=== PATIENT | male | born 1965 | race Caucasian/White ===

== ENCOUNTER → 2017-12-07 | Outpatient (CLI) | payer BC, OTHER ==
[~2017-12-07] VITALS: Ht 175.3 cm; Wt 88.0 kg
[~2017-12-07] MED LIST: ALLERGY10 M1 PO; FLEXERIL PO; HYDROCHLOROTH12.5 M1 PO; HYDROCODONE-AP1 EAC6 PO; MOBIC15 MG PO; NORVASC5 MG PO
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
[2017-12-07 08:19] VITALS: BP 155/100
== END ==
LOC: PAIN 07:03
DX: G89.29 Other chronic pain (principal); M54.5 Low back pain; M25.512 Pain in left shoulder; I10 Essential (primary) hypertension; M19.90 Unspecified osteoarthritis, unspecified site; Z98.890 Other specified postprocedural states

== ENCOUNTER → 2018-02-15 | Outpatient (CLI) | payer BC, OTHER ==
[~2018-02-15] VITALS: Ht 175.3 cm; Wt 86.6 kg
[~2018-02-15] MED LIST changes: +LIDODERM1 EACH TOP
--- NOTE | ~2018-02-15 | HPC ---
[facility] [address] [place] [address] PAIN MANAGEMENT CONSULTATION Name: MEGHANA MORSE JR Room #: REG JAMIE HayesSheliaIvory.#: [id number] Admission: 02/15/18 Attend Phys: Carmelo Dawson MD Discharge: Date of : 67 Report #: [id number] THIS REPORT FOR: //name// CC: Magui Dawson DATE OF SERVICE: 02/15/2018 FOLLOWUP COMPLAINT: Here for medication renewal. FOLLOWUP HISTORY: The patient is a 52-year-old gentleman who has been followed in the pain clinic because of chronic pain involving his low back. He does have some scoliosis. 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 Finds his medications enable him to stay gainfully employed. Does note some increased muscle spasms. Has had some problems with cramps. States that he was working on top of ____ roof. Became somewhat hot and overworked. He was taken to a cooling station. He has been working to increase his potassium level. He feels that was partially what the problem was and with some dehydration. The temperatures around have been about 95 for a number of days. Feels that the Flexeril medication continues to be helpful. He takes this medication at bedtime. He feels it makes him somewhat sleepy. He is sleeping reasonably well with his current medical regimen. He would like to have his medications renewed. He has had no problems with them. There are no problems with mentation. He rates his pain as a 10/10 today. Given the amount of work that he has been doing. Has been sleeping in a recliner. Also, finds that hot baths are helpful. ALLERGIES: No known drug allergies. MEDICATIONS: Lidoderm patch topically daily, hydrocodone 5/325 one p.o. t.i.d., cyclobenzaprine/Flexeril 10 mg at bedtime for spasms, Meloxicam 15 mg daily, hydrochlorothiazide 12.5 mg, Norvasc 5 mg daily as Mervat 10 mg daily. Other medications Viagra. PAIN CLINIC ASSESSMENT: 1. The patient has some arthritic changes back. Has scoliosis. Has had a compression fracture in the L2 area. 2. Height 5 feet 9 inches, weight 191 pounds, BMI is 28.2. 3. Vital signs: Blood pressure 116/106, pulse 80, respiratory rate 14, room air saturation 100. 4. Pain intensity 10/10. 5. Fall risk. The patient has not fallen in the last 3 months. 6. Blood thinner. The patient is not on a blood thinning medication. 7. Hypertension. The patient is being treated for hypertension. 8. Opioid therapy greater than 6 weeks. The patient is receiving medications from the pain clinic and uses opioid medications from [facility]. [address] [address] PAIN MANAGEMENT CONSULTATION Name: MINIMEGHANA LIBIA Room #: REG [facility]#: [id number] Admission: 02/15/18 Attend Phys: Carmelo Dawson MD Discharge: Date of : 67 Report #: [id number] 9. Risk assessment tool, low for opioids. 10. Functional assessment tool 51/70 showing significant problems with activities of daily living because of the pain. 11. Recreational drug use. The patient denies use of recreational drugs. 12. Tobacco: The patient never smoked tobacco. 13. Alcohol: The patient denies frequent use of alcoholic beverages. PHYSICAL EXAMINATION: GENERAL: The patient is a well-developed, well-nourished white male. Appears stated age. He is alert and oriented x 3. Her speech is fluent. HEAD, EYES, EARS, NOSE, AND THROAT: Normocephalic, atraumatic. Extraocular eye muscles intact. Sclerae nonicteric. Hearing is within normal limits. Mucous membranes are moist. NECK: Without adenopathy. Good range of motion. HEART: Regular rate and rhythm, S1, S2. LUNGS: Clear to auscultation without rales or rhonchi. ABDOMEN: Nontender. MUSCULOSKELETAL: The patient has noted some increased muscle spasm in his lower back. States his upper torso sometimes feels like it is twisting when he is in bed. Has a history of scoliosis. Feels that sometimes he is experiencing some cramping in his upper back as a result of this. He has discomfort in his left hip as well as in the upper back and the pectoralis area. Muscle strength in the left upper extremity is judged to be 5/5 for the major muscle groups without sensory change in muscles symmetry. Lower back 5/5 for the major muscle groups without sensory changes or weakness. IMPRESSION: 1. Chronic low back pain as well as left shoulder pain and discomfort. 2. History of scoliosis -- note some increase in spasticity. RECOMMENDATIONS: We discussed treatment options with the patient. We will continue with his current medications. He will continue with the Flexeril. He feels that the Flexeril medication is helpful. He has not taken at work. Feels that the medication sometimes make him feel somewhat sleepy. Feels that he is getting a good night's rest with his current medical regimen in conjunction with Flexeril. No real problems with his medication. He is taking them as prescribed. Keeps his medications in a guarded area. He feels that the medications along with meloxicam enable him to continue to be gainfully employed. We have rewritten his script for hydrocodone 5/325 one p.o. b.i.d., Flexeril 10 mg at bedtime and meloxicam 15 mg daily. He will monitor his blood. He will monitor his stomach for signs of GI irritation as a result of use of Mobic. [facility] [address] [place] [address] PAIN MANAGEMENT CONSULTATION Name: MEGHANA MORSE Room #: REG [facility].#: [id number] Admission: 02/15/18 Attend Phys: Carmelo Dawson MD Discharge: Date of : 67 Report #: [id number] We would like to thank you for letting us to participate in his care. We hope he continues to improve. By: [id number] Carmelo Dawson MD /JOHNNY
[2018-02-15 08:02] VITALS: BP 160/106
== END ==
LOC: PAIN 06:52
DX: G89.29 Other chronic pain (principal); M54.5 Low back pain; M25.512 Pain in left shoulder

== ENCOUNTER → 2018-03-15 | Outpatient (CLI) | payer BC, OTHER ==
[~2018-03-15] VITALS: Ht 175.3 cm; Wt 85.3 kg
--- NOTE | ~2018-03-15 | HPC ---
[facility] [address] [place] [address] PAIN MANAGEMENT CONSULTATION Name: MEGHANA MORSE JR Room #: REG JAMIE Blade.#: [id number] Admission: 03/15/18 Attend Phys: Carmelo Dawson MD Discharge: Date of : 67 Report #: [id number] THIS REPORT FOR: //name// CC: Magui Dawson DATE OF SERVICE: 03/15/2018 CHIEF COMPLAINT: Here for medication renewal. "Things are going pretty well. I have had some reflux-like symptoms when I was eating." FOLLOWUP HISTORY: The patient is a 52-year-old gentleman who has been followed in the pain clinic because of chronic pain involving his low back. He has some history of scoliosis. He continues to work in a difficult situation. He works in the heat of this summer. Continues to work with concrete. Finds that his medications are helpful. He has been taking the medication as prescribed. The patient states that things have been going reasonably well. He did have some episode of symptoms consistent with reflux. States that he does take antacid medications on a regular basis. If he forgets to take the medications that can be quite problematic. Notes some burning in his throat when he does not take this medication. States that last night he was eating, noted some discomfort. Did not have any pain radiating down to his arms, but did have some discomfort and "regurgitated/spit up" some of his food. Things improved somewhat after that. He has a family history of heart disease. He states that he has been living reasonably well and eating reasonably healthy. He does not smoke cigarettes. He has not had any problems with his heart per his recall. ALLERGIES: No known drug allergies. CURRENT MEDICATIONS: Lidoderm patch applied topically, hydrocodone 5/325 one p.o. t.i.d., Flexeril 10 mg at bedtime for spasms, meloxicam 15 mg, hydrochlorothiazide 12.5 mg, Norvasc 5 mg daily, Mervat 10 mg, and occasional use of Viagra. PAIN CLINIC ASSESSMENT: 1. The patient has some arthritic changes in his back, has scoliosis, has had compression fractures in the L2 area. 2. Height 5 feet 9 inches, weight 188 pounds, BMI is 27. Vital signs, blood pressure 150/98, pulse 76, respiratory rate 14, room air saturation is 100%. 3. Pain intensity 7/10. 4. Fall risk: The patient has not fallen in the last 3 months. 5. Blood thinner: The patient is not on a blood thinning medication. 6. Hypertension: The patient is being treated for hypertension. 7. Opioid therapy greater than 6 weeks: The patient is [facility]. [address] [address] PAIN MANAGEMENT CONSULTATION Name: MEGHANA MORSE LIBIA Room #: REG [facility]#: [id number] Admission: 03/15/18 Attend Phys: Carmelo Dawson MD Discharge: Date of : 67 Report #: [id number] 8. Risk assessment tool: Low for opioid use. 9. Functional assessment tool: 51/70 showing significant problems with activities of daily living secondary to pain. 10. Recreational drug use: The patient denies use of recreational drugs. 11. Tobacco: The patient denies use of tobacco. 12. Alcoholism: The patient denies frequent use of alcoholic beverages. PHYSICAL EXAMINATION: GENERAL: The patient is a well-developed, well-nourished white male, appears his stated age. He is alert and oriented x 3. Speech is fluent. HEENT: Normocephalic, atraumatic. Extraocular muscles intact. Sclerae nonicteric. Hearing within normal limits. Mucous membranes are moist. NECK: Without adenopathy. Good range of motion. HEART: Regular rate, normal S1, S2. LUNGS: Clear to auscultation without rales or rhonchi. ABDOMEN: Nontender. MUSCULOSKELETAL: The patient has some increased muscle spasm in lower portion of his back. The patient has some upper torso discomfort as well. He has discomfort associated with scoliosis. He has some pain in the upper back in the pectoralis area. Muscle strength in the left judged to be 5/5 in upper and 5/5 in lower muscles without sensory changes. IMPRESSION: 1. Chronic low back pain and left shoulder pain and discomfort. 2. History of scoliosis, note some increase in spasticity. 3. History of gastroesophageal reflux with some increased discomfort over the last few days. RECOMMENDATIONS: We discussed treatment options with the patient. Recommend that the patient follow up with his primary physician in regards to the reflux symptoms. He may need to be checked out. He says he has a strong family history for cardiovascular problems. He would like to continue with his medications. He has had no problems with them. A script for his medication have been rewritten for hydrocodone, Flexeril, and meloxicam. He will stop meloxicam if he notes some continued GI discomfort. We would like to thank you for letting us participate in his care. We hope he continues to improve. By: [id number] Carmelo Dawson MD /nt
[2018-03-15 07:59] VITALS: BP 150/98
== END ==
LOC: PAIN 06:46
DX: M54.5 Low back pain (principal); G89.29 Other chronic pain; Z79.899 Other long term (current) drug therapy

== ENCOUNTER → 2018-04-19 | Outpatient (CLI) | payer BC, OTHER ==
[~2018-04-19] VITALS: Ht 175.3 cm; Wt 86.6 kg
--- NOTE | ~2018-04-19 | HPC ---
[facility] [address] [place] [address] PAIN MANAGEMENT CONSULTATION Name: MEGHANA MORSE JR Room #: REG [facility].#: [id number] Admission: 04/19/18 Attend Phys: Carmelo Dawson MD Discharge: Date of : 67 Report #: [id number] THIS REPORT FOR: //name// CC: Magui Dawson DATE OF SERVICE: 04/19/2018 FOLLOWUP COMPLAINT: Here for medication renewal. I went to [place] on vacation. Having some muscle spasms. FOLLOWUP HISTORY: The patient is a 53-year-old gentleman who has been followed in the pain clinic because of chronic pain. As you recall, he has some scoliosis involving his upper back. 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 He noticed some pain and discomfort involving his left neck. He states that he went out and was in the ocean many of the days that he was on vacation. He is not sure as to whether that significant amount of activity has caused more pain secondary to spasms. It involves his left shoulder. He is not having any significant muscle weakness in his hands or forearm, but does note some increased soreness. As he is aware he has scoliosis. He does not feel that this is stopped and him from working. It is a chronic painful situation. ALLERGIES: No known drug allergies. CURRENT MEDICATIONS: Lidoderm patch applied topically, hydrocodone 5/325 one p.o. t.i.d., Flexeril 10 mg at bedtime for spasms, the patient does not feel that Meloxicam has been helpful, so he stopped taking this medication, hydrochlorothiazide 12.5 mg, Norvasc 5 mg, Mervat 10 mg and an occasional Viagra. PAIN CLINIC ASSESSMENT: 1. The patient has some arthritic changes in his back. He has scoliosis. He has compression fracture in the L2 area. 2. Height 5 feet 9 inches, weight 191 pounds, BMI 28.2. 3. Vital signs: Blood pressure 149/97, pulse 71, respiratory rate 15 and room air saturation 98%. 4. Pain intensity 03/05. 5. Fall risk. The patient has not fallen in the last 3 months. 6. Blood thinner. The patient is not on a blood thinning medication. 7. History of hypertension. The patient is being treated for hypertension. 8. Opioids greater than 6 weeks. The patient received opioids from the pain clinics and takes them on a prescribed basis. 9. Risk assessment tool. 10. Functional assessment tool is 51/70. 11. Recreational drug use. The patient denies use of recreational drugs. [address] [address] PAIN MANAGEMENT CONSULTATION Name: CECI MORSEMontserrat REZA Room #: REG [facility] Blade.#: [id number] Admission: 04/19/18 Attend Phys: Carmelo Dawson MD Discharge: Date of : 67 Report #: [id number] 12. Tobacco: The patient has never smell smoke. 13. Alcohol: The patient drinks beer occasionally. PHYSICAL EXAMINATION: GENERAL: The patient is a well-developed, well-nourished white male. Appears his stated age. He is alert and oriented x 3. Affect is appropriate. Speech is fluent. HEENT: Normocephalic, atraumatic. Extraocular eye muscles intact. Sclerae nonicteric. Hearing is within normal limits. Mucous membranes are moist. NECK: Without adenopathy. Good range of motion. Has some soreness on the left trapezius area. HEART: Regular rate. S1, S2. LUNGS: Clear to auscultation without rales or rhonchi. ABDOMEN: Nontender. MUSCULOSKELETAL: The patient has some muscle spasm in the upper shoulder area and neck area on his left side. The patient has scoliosis. Notes that his right scapular protrudes somewhat more so than the left side. Muscle strength is judged to be 5/5 for the upper motor muscles with symmetry as well as 5/5 for the lower muscles with symmetry. IMPRESSION: 1. Chronic back pain and left shoulder pain with discomfort. 2. History of scoliosis notes some increased spasticity. 3. Gastroesophageal reflux. 4. Considering whether or not to see a neurosurgeon in regards to his current spinal status. RECOMMENDATIONS: We discussed treatment options with the patient. We will continue with his current medical regimen. He has been given a script for his medications and he will continue with hydrocodone 5/325 one p.o. t.i.d., Flexeril 10 mg at bedtime. The patient has been kicking around the thought of seeing a surgeon in regards to his spinal scoliosis. At this juncture, he feels that things are going reasonably well and he probably does not need to see a surgeon. We have explained to him that an orthopedic surgeon or neurosurgeon would be able to give him better indication of how things are going than I would. Again, we have given him the opportunity to a branch out and see a surgeon while things are going well, so in the event that something should become problematic he would have already touched base with the surgeon. He will give this consideration. We would like to thank you for letting us participate in his care. We hope he continues to improve. By: [id number] MD brigid Landers
[2018-04-19 14:53] VITALS: BP 149/97
== END ==
LOC: PAIN 04-12 07:19
DX: M41.86 Other forms of scoliosis, lumbar region (principal); M54.5 Low back pain; G89.29 Other chronic pain; K21.9 Gastro-esophageal reflux disease without esophagitis; Z79.899 Other long term (current) drug therapy

== ENCOUNTER → 2018-05-17 | Outpatient (CLI) | payer BC, OTHER ==
[~2018-05-17] VITALS: Ht 175.3 cm; Wt 88.7 kg
[2018-05-17 08:07] VITALS: BP 143/96
== END ==
LOC: PAIN 06:54
DX: M41.86 Other forms of scoliosis, lumbar region (principal); G89.29 Other chronic pain; Z79.899 Other long term (current) drug therapy

== ENCOUNTER → 2018-06-14 | Outpatient (CLI) | payer BC, OTHER ==
[~2018-06-14] VITALS: Ht 175.3 cm; Wt 88.6 kg
--- NOTE | ~2018-06-14 | HPC ---
[facility] Ivelisse [place] [address] PAIN MANAGEMENT CONSULTATION Name: MEGHANA MORSE JR [id number] Admission: 06/14/18 Attend Phys: Carmelo Dawson MD Discharge: Date of : 67 Report #: [id number] THIS REPORT FOR: //name// CC: Magui Dawson DATE OF SERVICE: 06/14/2018 FOLLOWUP COMPLAINT: Here for medications. FOLLOWUP: The patient is a 53-year-old gentleman who has been followed in the pain clinic. 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 At this juncture, he continues to find that his pain is problematic. He has scoliosis in the upper back. He finds that hydrocodone enables him to remain gainfully employed. He is taking the medication as prescribed. He is not having any consequences. Mentation is good. No problem with bowel or bladder function. He is taking the medication as prescribed. He keeps his medications in a guarded area. Finds that his pain level today is an 8/10. ALLERGIES: No known drug allergies. MEDICATIONS: Lidoderm patch applied topically, hydrocodone 5/325 one p.o. t.i.d., Flexeril 10 mg 1 p.o. at bedtime for spasms, Meloxicam 15 mg, hydrochlorothiazide 12.5 mg, Norvasc 5 mg, Mervat 10 mg, and Viagra. PAIN CLINIC ASSESSMENT/PQRS: 1. The patient has some arthritic changes in the upper portion of his back secondary to scoliosis. 2. He has had a compression fracture at L2. The patient has not been treated for rheumatoid arthritis. 3. Height 5 feet 9 inches, weight 195 pounds, BMI is 28.8. 4. Vital signs: Blood pressure 135/91, respiratory rate 16, room air saturation 97%, pulse was 84. 5. Pain intensity 8/10. 6. Fall risk. The patient has not fallen in the last 3 months. 7. Blood thinner. The patient is not on a blood thinning medication. 8. History of hypertension. The patient is being treated for hypertension. 9. Opiate therapy greater than 6 weeks. The patient [facility]. 10. Functional assessment tool, low for opioid use. 11. Functional assessment tool 51/70. 12. Recreational drug use: The patient denies. 13. Tobacco: The patient denies use of tobacco. 14. Alcohol: The [place] [address] PAIN MANAGEMENT CONSULTATION Name: MEGHANA MORSE Room #: REG [facility]#: [id number] Admission: 06/14/18 Attend Phys: Carmelo Dawson MD Discharge: Date of : 67 Report #: [id number] PHYSICAL EXAMINATION: GENERAL: The patient is a well-developed, well-nourished white male. Appears his stated age. He is alert and oriented x 3. Affect is appropriate. Speech is fluent. HEENT: Normocephalic, atraumatic. Extraocular muscles intact. Sclerae nonicteric. Hearing is within normal limits. Mucous membranes are moist. NECK: Without adenopathy. Good range of motion. The patient has some soreness in the left trapezius area. HEART: Regular rate. S1, S2. LUNGS: Clear to auscultation without rales, or rhonchi. ABDOMEN: Nontender. Bowel sounds present. MUSCULOSKELETAL: Upper extremity muscle strength is judged to be 5/5 for the major muscle groups. Has some pain and discomfort in the upper back secondary to the scoliosis. He has a protruding right scapular bone. Lower extremity strength 5/5 for the major muscle groups in the lower extremity. IMPRESSION: 1. Chronic back pain, left shoulder with increased discomfort. 2. History of scoliosis note some increased spasticity. 3. Gastroesophageal reflux. 4. The patient may see a neurosurgeon in the future in regard to the spine status. RECOMMENDATIONS: We discussed treatment options with the patient. At this juncture, we will continue with his current medications. He has been given a script for renewal of [place] 5/325 mg one p.o. b.i.d. as well as the patient finds that the Flexeril medication is helpful. He does not have any problems with being sleepy or having any untoward complication from use of his medication. He is alert. He will call us if he has any concerns. We would like to thank you for letting us participate in his care. We hope he continues to improve. By: [id number] Carmelo Dawson MD /ruth
[2018-06-14 08:03] VITALS: BP 135/91
== END ==
LOC: PAIN 06:46
DX: M54.5 Low back pain (principal); G89.29 Other chronic pain; M25.512 Pain in left shoulder; K21.9 Gastro-esophageal reflux disease without esophagitis; Z87.39 Personal history of other diseases of the musculoskeletal system and connective tissue; Z79.899 Other long term (current) drug therapy; Z72.89 Other problems related to lifestyle

== ENCOUNTER → 2018-07-12 | Outpatient (CLI) | payer BC, OTHER ==
[~2018-07-12] VITALS: Ht 175.3 cm; Wt 90.6 kg
[~2018-07-12] MED LIST changes: +HYDROCODON-ACE1 EAC7 PO
--- NOTE | ~2018-07-12 | HPC ---
[facility] [address] [place] [address] PAIN MANAGEMENT CONSULTATION Name: MEGHANA MORSE JR Room #: REG [facility].#: [id number] Admission: 07/12/18 Attend Phys: Susan oGnzalez Discharge: Date of : 67 Report #: [id number] THIS REPORT FOR: //name// CC: Susan Benavides DO DATE OF SERVICE: 07/12/2018 This patient is here for a followup today for his chronic back pain secondary to his scoliosis. HISTORY OF PRESENT ILLNESS: The patient presents today for a refill of his hydrocodone. 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 He recently started a new job with [employer]. He tells me that he does not have to work quite as hard as he did with his previous employer. Therefore, he is not using his medicine quite as frequently and is not as tired and hurting when he gets home from work. He tells me he just started and he has been enjoying it so far. He said they are very good company to work for and he thinks that his pain will be better controlled just due to switching jobs as he takes hydrocodone on an as needed basis and then, he takes his Flexeril at night. He denies constipation or daytime sleepiness. His pain average is at 8/10, worse after working or sitting too long, bending and lifting. He tells me on the weekend when he sits in his recliner, he does not require medications at all. ALLERGIES: No known drug allergies. CURRENT MEDICATIONS: Hydrocodone 5/325 up to 3 times a day, Flexeril 10 mg at bedtime, hydrochlorothiazide 12.5 mg daily, Norvasc 5 mg daily, Mervat, Claritin 10 mg daily. PQRS: 1. He has some arthritic changes in his upper part of his back due to scoliosis. Denies rheumatoid arthritis. 2. Height is 5 feet 9 inches, weight 199 pounds, BMI is 29.5. 3. Vital signs: Blood pressure 143/93, pulse is 81, respirations 16, oxygen sat is 100. 4. Pain score is 8. 5. Fall risk. He denies dizziness. Does not need help walking or standing and has not fallen in the last 3 months. 6. He is not on any blood thinners. 7. He does have a history of hypertension. 8. Opioid therapy is greater than 6 weeks; therefore, an opioid signed contract is on the chart. 9. His risk assessment tool is low and his functional assessment is 51/70. He does not use recreational drugs, does not smoke and does not drink alcohol. [address] [address] PAIN MANAGEMENT CONSULTATION Name: MINIMEGHANA Room #: [facility] [id number] Admission: 07/12/18 Attend Phys: Susan Gonzalez Discharge: Date of : 67 Report #: [id number] [place] and [place] Prescription Monitoring has been checked. The patient is filling appropriate from Dr. Alexis Dawson for his narcotics with no aberrant behavior. He tells me he safeguards his medications PHYSICAL EXAMINATION: GENERAL: This is a patient who is well-developed, well-nourished, white male appears his stated age. He is alert and oriented. Affect is appropriate. HEENT: Normocephalic, atraumatic. Extraocular muscles are intact. Hearing is within normal limits and mucous membranes are moist. NECK: Without adenopathy. Good range of motion. MUSCULOSKELETAL: Upper extremity strength to be judged 5/5 for the major muscle groups. He has some discomfort in his upper back secondary to his scoliosis. His scapular bone on the right side is slightly protruding. Lower extremity strength to be 5/5 judged in his major muscle groups. IMPRESSION: 1. Chronic back pain. 2. History of scoliosis. 3. Gastrointestinal reflux. 4. Hypertension. We reviewed the fact that opiate medications are being used to provide analgesia adequate to support activities of daily living, not attempting to achieve a specific pain score on the 0-10 Visual Analog Scale. The current opiate medications are providing sufficient analgesia to allow the patient to participate in activities of daily living. The patient is not exhibiting any aberrant behavior suggestive of drug diversion. The patient is not having any adverse reactions to medications. The patient is not suffering from daytime somnolence or mental acuity changes. The patient is managing opiate-induced constipation with appropriate [id number] agents and dietary considerations. The patient was counseled on concern for caution with operating a motor vehicle while using opiate medications. A physical exam was performed and the patient's functional status was evaluated. All patients with back pain were advised against the bed rest greater than 4 days and were advised to return to normal activities. Pain score assessment was noted and the treatment plan was reviewed with the patient. All current medications, both prescribed and OTC were reviewed and reconciled on the electronic medical record. Tobacco screening was accomplished and smoking cessation was advised when indicated. BMI was noted and diet/exercise modification was recommended for all patients following outside normal parameters. I reviewed with the patient today their responsibilities to safeguard prescription medications, reviewed their responsibility to utilize medications only as prescribed by the physician. They are to seek and receive pain [address] [address] PAIN MANAGEMENT CONSULTATION Name: MEGHANA MORSE JR Room #: REG [facility]#: [id number] Admission: 07/12/18 Attend Phys: Susan Gonzalez Discharge: Date of : 67 Report #: [id number] medications only from 1 physician group ( [facility]). They are to use 1 pharmacy and keep the clinic informed if they change pharmacies. Their responsibilities include making followup visits in a timely fashion and to avoid abrupt discontinuation of medication usage. Their responsibilities further include bringing their medications (bottles from the pharmacy with residual pills) to the visit for possible confirmation of pill counts and the patient understands it is their responsibility to submit to random drug screens to ensure both that the medications prescribed are present, and that no other controlled substances are present. All prescriptions provided today were generated electronically. PLAN: 1. We discussed treatment options with the patient. At this time, we will continue his current medications. He is given a script for hydrocodone 5/325 one tablet up to 3 times a day as needed. Scripts were given for #90 for today and in 4-week refills; Flexeril 10 mg 1 tablet at bedtime was also given with an additional refill. The patient is agreeable with this plan of care. 2. He was given 2 months for the first time. We discussed with the CDC guidelines that he may have 2 months of medicine since he falls below the 50 MME equivalent that the CDC is recommending. The patient will use these medicines sparingly and return and follow up as needed. It may be slightly longer than 2 months since he is not needing them quite every day since he had started his new job, but since this is new just this week for his new job, he is unsure how it will continue. 3. The patient will be seen in followup in 2 months and care was given today with collaboration of Dr. Alexis Dawson. <ELECTRONICALLY SIGNED> By: Susan Gonzalez 07/15/18 0721 [id number] Susan Gonzalez /nt
[2018-07-12 07:59] VITALS: BP 143/93
== END ==
LOC: PAIN 07:08
DX: M54.5 Low back pain (principal); G89.29 Other chronic pain; K21.9 Gastro-esophageal reflux disease without esophagitis; I10 Essential (primary) hypertension; Z87.39 Personal history of other diseases of the musculoskeletal system and connective tissue

== ENCOUNTER → 2018-09-13 | Outpatient (CLI) | payer BC, OTHER ==
[~2018-09-13] VITALS: Ht 175.3 cm; Wt 91.0 kg
--- NOTE | ~2018-09-13 | HPC ---
[facility] [address] [employer] [place] [address] PAIN MANAGEMENT CONSULTATION Name: MEGHANA MORSE JR Room #: REG [facility] [id number] Admission: 09/13/18 Attend Phys: Carmelo Dawson MD Discharge: Date of : 67 Report #: [id number] THIS REPORT FOR: //name// CC: Magui Dawson DATE OF SERVICE: 09/13/2018 CHIEF COMPLAINT: Pain is about 10 today. The weather is changing. HISTORY: The patient Kody is a 53-year-old gentleman who has been followed in the pain clinic because of chronic pain. As you recall, he has some problems with his back. 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 Has a history of scoliosis in his upper back. Finds that his hydrocodone medication is beneficial. He is able to stay gainfully employed. States that he is working outside. The weather today is the 20s. He feels that his medications are working well. He is not having any problems with the medications. He would like to have more pain relief, but overall feels that the pain medication is beneficial. Rates his pain as a 10/10. It has been very humid, weather pattern continues to fluctuate. He feels that has something to do with his discomfort. ALLERGIES: No known drug allergies. CURRENT MEDICATIONS: Lidoderm patch applied topically, hydrocodone 5/325 one p.o. t.i.d. Flexeril 10 mg at bedtime for spasms, Meloxicam 15 mg has been used in the past, hydrochlorothiazide 12.5 mg, Norvasc 5 mg, Mervat 10 mg with occasional Viagra. PAIN CLINIC ASSESSMENT/PQRS: 1. The patient has some arthritic changes in his back with history of scoliosis. He has had a compression fracture at the L1-L2 area. The patient has not been treated for rheumatoid arthritis. 2. Height 5 feet 9 inches, weight 200 pounds. BMI is 29.6. 3. Vital signs: Blood pressure 141/91, pulse 77, respiratory rate 16, room air saturation 97%. 4. Pain intensity 06/05. 5. Fall risk. The patient has not fallen in the last 3 months. 6. Blood thinning: The patient is on his blood thinning medication. 7. Hypertension. The patient is being treated for hypertension. 8. Opioids greater than 6 weeks. The patient [facility]. 9. Risk assessment tool: Low for opioid risk. 10. Functional assessment tool: 51/70. 11. Recreational drug use: The patient denies use of recreational drugs. 12. Tobacco: The patient has never smoked. [facility] [address] [place] [address] PAIN MANAGEMENT CONSULTATION Name: MEGHANA MORSE JR Room #: REG [facility].#: [id number] Admission: 09/13/18 Attend Phys: Carmelo Dawson MD Discharge: Date of : 67 Report #: [id number] 13. Alcohol: The patient denies frequent use of alcoholic beverages. PHYSICAL EXAMINATION: GENERAL: The patient is a well-developed, well-nourished white male. Appears his stated age. He is alert and oriented x 3. Affect is appropriate. Speech is fluent. HEENT: Normocephalic, atraumatic. Extraocular eye muscles intact. Sclerae nonicteric. Mucous membranes are moist. NECK: Without adenopathy or JVD. The range of motion is good. LUNGS: Clear to auscultation without rhonchi or rales. ABDOMEN: Nontender. MUSCULOSKELETAL: The patient has some pain and discomfort in the upper shoulder area. Has pain in the left side of the neck. Has evidence of scoliosis. Some right scapular pain. The right scapular protrudes slightly. Muscle symmetry in the lower extremity, 5/5 for the major muscle groups and 5/5 for the upper extremity. IMPRESSION: 1. Chronic pain with left shoulder pain and discomfort. History of scoliosis, which increases with spasticity and changes in the weather. 2. Gastroesophageal reflux. 3. The patient will be evaluated in the future by neurosurgeon regarding current spinal stenosis. RECOMMENDATIONS: At this juncture, he feels that things are going reasonably well. His pain is rated at 10, but he feels that things are continuing to be beneficial. 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 This cold, damp weather continues to wax and wane. This threatens today of a winter storm. Overall, I think things are going well. A script for his medications, cyclobenzaprine 10 mg 1 p.o. at bedtime, hydrocodone 5/325 one p.o. t.i.d. have been rewritten. The patient will call us if he has any concerns. We would like to thank you for letting us participate in his care. We hope he continues to improve. By: [id number] Carmelo Dawson MD /ruth
[2018-09-13 07:53] VITALS: BP 141/91
--- NOTE | 2018-09-13 07:56 | NUR ---
Pain Clinic Assessment: 1. History of Osteoarthritis: NO History of Rheumatoid Arthritis: NO 2. Height: 5 ft. 9 in. 175.3 cm. Weight: 200.6 lb. oz. 90.992 kg. Patient's BMI: 29.6 3. Vital Signs: BP: 141/91 Pulse: 77 Resp: 16 Temp: 02 Sat: 97 ECG Mon: 4. Pain Intensity: 10 5. Fall Risk: Dizziness: N Needs help standing or walking: N Fallen in the last 3 months: N Fall risk comments: 6. Patient on Blood Thinner: None 7. History of Hypertension: Y 8. Opioid Therapy greater than 6 weeks: Y Opiate Contract Signed: 01/18/18 9. Risk Assessment Tool Provided: Opioid Risk Tool 10. Functional Assessment Tool: 11. Recreational Drug Use: Never Drug Type: Tobacco Use: Never Smoker Tobacco Type: Amount or Packs/day: How Many Years: Alcohol Use: No Frequency: Quant:
== END ==
LOC: PAIN 06:53
DX: M25.512 Pain in left shoulder (principal); R07.89 Other chest pain; G89.29 Other chronic pain; K21.9 Gastro-esophageal reflux disease without esophagitis; M48.00 Spinal stenosis, site unspecified

== ENCOUNTER → 2018-11-29 | Outpatient (CLI) | payer BC, OTHER ==
[~2018-11-29] VITALS: Ht 175.3 cm; Wt 92.2 kg
[~2018-11-29] MED LIST changes: +CENTRUM SILVER1 EAC2 PO
--- NOTE | ~2018-11-29 | HPC ---
[facility] [address] [place] [address] PAIN MANAGEMENT CONSULTATION Name: MEGHANA MORSE JR Room #: REG [facility]ade.#: [id number] Admission: 11/29/18 ������������������ Attend Phys: Carmelo Dawson MD Discharge: ������������������ Date of : 67 Report #: [id number] THIS REPORT FOR: //name// CC: Magui Dawson DATE OF SERVICE: 11/29/2018 CHIEF COMPLAINT: Here for medication renewal, pain medication is still helpful. HISTORY: The patient is a 53-year-old gentleman who has been followed in the pain clinic. As you may recall, he has some pain and discomfort in his back. 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 States that he uses medications to help with his pain. Usually takes it after he gets home. He has noticed some continued pain in the upper body. Has a history of scoliosis. He is concerned that over time, his pain may become more problematic and that he may require surgery to help curtail his pain and discomfort. Overall, things are going reasonably well. He would like to continue with his medications. He has had no complication from the medication. He is able to think clearly. He has not had any problems with these medications causing confusion or problems at work. He is aware not to take them in the event that he is at work and could be operating heavy machinery or dangerous activities. ALLERGIES: No known drug allergies. MEDICATIONS: Lidoderm patch applied topically, hydrocodone 5/325 one p.o. t.i.d., Flexeril 10 mg at bedtime for spasms, meloxicam 15 mg in the past, hydrochlorothiazide 12.5 mg, Norvasc 5 mg, Mervat 10 mg, and occasional Viagra. PAIN CLINIC ASSESSMENT/PQRS: 1. The patient has some arthritic change in the upper portion of his back with scoliosis. This is in the area of the upper thoracic area. Has had a compression fracture at L1-L2. He is not being treated for rheumatoid arthritis. 2. Height 5 feet 9 inches, weight 203 pounds, BMI is 30. 3. Vital signs: Blood pressure 152/97, pulse 89, respiratory rate 16, room air saturation 98%. 3. Pain intensity 06/05. 4. Fall risk. The patient has not fallen in the last 3 months. 5. Blood thinner. The patient is not on a blood thinning medication. 6. Hypertension. The patient is being treated for hypertension. 7. Opioids greater than 6 weeks. The patient [facility]. 8. Risk assessment tool, low for opioid use. 9. Functional assessment tool, 51/70. 10. Recreational drug use. The patient denies use of recreational drugs. [address] [address] PAIN MANAGEMENT CONSULTATION Name: MEGHANA MORSE Room #: REG [facility] Miladis#: [id number] Admission: 11/29/18 ������������������ Attend Phys: Carmelo Dawson MD Discharge: ������������������ Date of : 67 Report #: [id number] 11. Tobacco: The patient has never smoked. 12. Alcohol: The patient denies frequent use of alcoholic beverages. PHYSICAL EXAMINATION: GENERAL: The patient is a well-developed, well-nourished white male. Appears his stated age. He is alert and oriented x 3. His affect is appropriate. Speech is fluent. HEENT: Normocephalic, atraumatic. Extraocular eye muscles intact. Sclerae nonicteric. Mucous membranes are moist. The patient is wearing glasses. NECK: Without adenopathy or JVD. Good range of motion. LUNGS: Clear to auscultation without rhonchi or rales. ABDOMEN: Nontender. The patient notes some pain in the upper thoracic area. MUSCULOSKELETAL: Without significant kyphosis. The patient has a right scapula that protrudes slightly ____ there is asymmetry in this area. Upper extremity muscle strength judged to be 5/5. Lower extremity muscle strength is judged to be 5/5. IMPRESSION: 1. Chronic pain, left shoulder discomfort. History of scoliosis which increases with spasticity and changes in the weather. 2. Gastroesophageal reflux. 3. Possibility of surgical intervention in the future. RECOMMENDATIONS: We discussed treatment options with the patient. We have given an opportunity to consider talking to a neurosurgeon. I explained to him that if he would talk to him early it would be great, better than having a problem and seeing a neurosurgeon in an emergent situation. He will continue to think about it. He would like to have his medications renewed. Takes medications as prescribed. Keeps his medications locked up. He is aware that opioid medications can be less effective over time secondary to development of tolerance as well as development of addiction with long-term use. Feels that the medications are helpful. States he needs to continue to work. 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 We hope he continues to improve. ��������������������������������������������� ���������������������������������������� By: ��������������������������������������������� [id number] Carmelo Dawson MD /nt
[2018-11-29 13:08] VITALS: BP 152/97
--- NOTE | 2018-11-29 13:20 | NUR ---
Pain Clinic Assessment: 1. History of Osteoarthritis: NO History of Rheumatoid Arthritis: NO 2. Height: 5 ft. 9 in. 175.3 cm. Weight: 203.2 lb. oz. 92.171 kg. Patient's BMI: 30.0 3. Vital Signs: BP: 152/97 Pulse: 89 Resp: 16 Temp: 02 Sat: 98 ECG Mon: 4. Pain Intensity: 10 5. Fall Risk: Dizziness: N Needs help standing or walking: N Fallen in the last 3 months: N Fall risk comments: 6. Patient on Blood Thinner: None 7. History of Hypertension: Y 8. Opioid Therapy greater than 6 weeks: Y Opiate Contract Signed: 01/18/18 9. Risk Assessment Tool Provided: Opioid Risk Tool 10. Functional Assessment Tool: 11. Recreational Drug Use: Never Drug Type: Tobacco Use: Never Smoker Tobacco Type: Amount or Packs/day: How Many Years: Alcohol Use: No Frequency: Quant:
== END ==
LOC: PAIN 11-22 13:39
DX: M25.512 Pain in left shoulder (principal); G89.29 Other chronic pain; K21.9 Gastro-esophageal reflux disease without esophagitis; I10 Essential (primary) hypertension; Z87.39 Personal history of other diseases of the musculoskeletal system and connective tissue; Z79.899 Other long term (current) drug therapy

== ENCOUNTER → 2019-01-29 | Outpatient (CLI) | payer BC, OTHER ==
[~2019-01-29] VITALS: Ht 175.3 cm; Wt 91.8 kg
[~2019-01-29] MED LIST changes: +NORCO 5-325 TA1 EAC1 PO
[2019-01-29 12:33] VITALS: BP 153/91
--- NOTE | 2019-01-29 12:35 | NUR ---
Pain Clinic Assessment: 1. History of Osteoarthritis: NO History of Rheumatoid Arthritis: NO 2. Height: 5 ft. 9 in. 175.3 cm. Weight: 202.4 lb. oz. 91.808 kg. Patient's BMI: 29.9 3. Vital Signs: BP: 153/91 Pulse: 106 Resp: 6 Temp: 02 Sat: 95 ECG Mon: 4. Pain Intensity: 7-8 5. Fall Risk: Dizziness: N Needs help standing or walking: N Fallen in the last 3 months: N Fall risk comments: 6. Patient on Blood Thinner: None 7. History of Hypertension: Y 8. Opioid Therapy greater than 6 weeks: Y Opiate Contract Signed: 01/18/18 9. Risk Assessment Tool Provided: Opioid Risk Tool 10. Functional Assessment Tool: 11. Recreational Drug Use: Never Drug Type: Tobacco Use: Never Smoker Tobacco Type: Amount or Packs/day: How Many Years: Alcohol Use: No Frequency: Quant:
--- NOTE | 2019-01-30 08:00 | HPC ---
[facility] [address] [place] [address] PAIN MANAGEMENT CONSULTATION Name: MEGHANA MORSE JR Room #: REG [facility].#: [id number] Admission: 01/29/19 ������������������ Attend Phys: Susan Gonzalez Discharge: ������������������ Date of : 67 Report #: [id number] THIS REPORT FOR: //name// CC: Susan Benavides DATE OF SERVICE: 01/29/2019 CHIEF COMPLAINT: Low back pain and bilateral knee pain. HISTORY OF PRESENT ILLNESS: This is a very pleasant gentleman 53 years old. He returns to the Pain Clinic for refill of his medications that he takes to help treat his ongoing discomfort in his lower back and his knee pain. He tells me today that his pain score is a 7-8, mostly in his left knee and across his lower back. He does experience some occasional tenderness in his shoulder. He tells me it is an aching, stiffness, twisting feeling, worse when he is bending over or is working; better when he is sitting in his recliner at home or take hot baths or uses his medication. He tells me he only has problems with the constipation very rarely and is able to handle this without taking medications. He does not experience any daytime sleepiness. He is here today for refill of his medications. ALLERGIES: No known drug allergies. CURRENT MEDICATION LIST: Hydrocodone 5/325 p.r.n., Flexeril 10 mg at bedtime, multivitamin, hydrochlorothiazide 12.5 mg daily, amlodipine 5 mg daily and allergy medicine daily. PQRS: 1. He has some arthritic changes in his back related to his scoliosis as well as his knees. He has not been treated for rheumatoid arthritis. 2. Height is 5 feet 9 inches, weight is 202 pounds, BMI is 29. 3. Vital signs: Blood pressure 153/91, pulse is 106, respirations 16, oxygen sat is 95. 4. Pain score is 7-8. 5. Fall risk: Denies dizziness. Does not need help walking or standing. Has not fallen in the last three months. 6. The patient is not on any blood thinners. Does take medicine for hypertension. 7. Opioid therapy is greater than six weeks; therefore, an opioid signed contract is on the chart. Risk assessment tool is low. Functional assessment is 51/70. 8. Recreational drug use: He denies, not a smoker and does not drink alcohol. We did check the prescription monitoring system. The patient is filling appropriately for his medications. He is due for those today. We will do a [address] [address] PAIN MANAGEMENT CONSULTATION Name: MEGHANA MORSE Room #: REG [facility]#: [id number] Admission: 01/29/19 ������������������ Attend Phys: Susan Gonzalez Discharge: ������������������ Date of : 67 Report #: [id number] random drug screen on him in the future. PHYSICAL EXAMINATION: GENERAL: This is a well-developed, well-nourished, white gentleman who appears his stated age. He is alert and orientated and his affect is appropriate, placing his current pain score today at 7-8/10. HEENT: Normocephalic, atraumatic. Extraocular eye muscles are intact. Mucous membranes are moist. The patient is wearing glasses. NECK: Without adenopathy or JVD. MUSCULOSKELETAL: The patient is without significant kyphosis. He does have scoliosis. His right scapula protrudes slightly. There is asymmetry in this area. He has upper extremity muscle strength at 5/5. His lower extremity strength is judged to be 5/5, equal muscle tone and symmetry, tenderness along the lumbar region of his spine and pain and crepitus in his left knee today. The patient walks with a slightly antalgic gait. IMPRESSION: 1. Chronic pain. 2. History of scoliosis with increased spasticity. 3. Osteoarthritis. 4. Management of high-risk medications under terms of written opioid agreement. We reviewed the fact that opiate medications are being used to provide analgesia adequate to support activities of daily living, not attempting to achieve a specific pain score on the 0-10 Visual Analog Scale. The current opiate medications are providing sufficient analgesia to allow the patient to participate in activities of daily living. The patient is not exhibiting any aberrant behavior suggestive of drug diversion. The patient is not having any adverse reactions to medications. The patient is not suffering from daytime somnolence or mental acuity changes. The patient is managing opiate-induced constipation with appropriate gjrv-lru-jrynwbe agents and dietary considerations. The patient was counseled on concern for caution with operating a motor vehicle while using opiate medications. A physical exam was performed and the patient's functional status was evaluated. All patients with back pain were advised against the bed rest greater than 4 days and were advised to return to normal activities. Pain score assessment was noted and the treatment plan was reviewed with the patient. All current medications, both prescribed and OTC were reviewed and reconciled on the electronic medical record. Tobacco screening was accomplished and smoking cessation was advised when indicated. BMI was noted and diet/exercise modification was recommended for all patients following outside normal parameters. I reviewed with the patient today their responsibilities to safeguard prescription medications, reviewed their responsibility to utilize medications [address] [address] PAIN MANAGEMENT CONSULTATION Name: MEGHANA MORSE JR Room #: REG [facility]#: [id number] Admission: 01/29/19 ������������������ Attend Phys: Susan Gonzalez Discharge: ������������������ Date of : 67 Report #: [id number] only as prescribed by the physician. They are to seek and receive pain medications only from 1 physician group ( [facility]). They are to use 1 pharmacy and keep the clinic informed if they change pharmacies. Their responsibilities include making followup visits in a timely fashion and to avoid abrupt discontinuation of medication usage. Their responsibilities further include bringing their medications (bottles from the pharmacy with residual pills) to the visit for possible confirmation of pill counts and the patient understands it is their responsibility to submit to random drug screens to ensure both that the medications prescribed are present, and that no other controlled substances are present. All prescriptions provided today were generated electronically. PLAN: 1. We discussed treatment options with the patient today. The patient tells me that he is doing quite well with his current medication regimen, so we will refill his hydrocodone 5/325, #90 for today release and 4-week release. This places the patient at 50 morphine milliequivalent well under the CDC guidelines. Script was also given for Flexeril 10 mg at bedtime, #30 with one additional refill. This does help him relax at night and afford him better sleep. 2. We did discuss the CDC guidelines with him and also, we checked the prescription monitoring system and we will do random drug screens on him. The patient understands random drug screens. He said he recently had one at work. I told him that we are not collecting that today, but we will in the future. He verbalizes understanding. 3. The patient was seen by Dr. Doug Dawson who collaborated care today as well as have seen him. The patient will return in two months' time period. ��������������������������������������������� <ELECTRONICALLY SIGNED> ���������������������������������������� By: Susan Gonzalez ��������������������������������������������� 01/30/19 0800 [id number] Susan Gonzalez /nt
== END ==
LOC: PAIN 12:11
DX: M19.90 Unspecified osteoarthritis, unspecified site (principal); G89.29 Other chronic pain; Z79.891 Long term (current) use of opiate analgesic; Z79.899 Other long term (current) drug therapy

== ENCOUNTER → 2019-04-04 | Outpatient (CLI) | payer BC, OTHER ==
[~2019-04-04] VITALS: Ht 175.3 cm; Wt 92.4 kg
[2019-04-04 08:20] VITALS: BP 147/96
--- NOTE | 2019-04-04 08:26 | NUR ---
Pain Clinic Assessment: 1. History of Osteoarthritis: NO History of Rheumatoid Arthritis: NO 2. Height: 5 ft. 9 in. 175.3 cm. Weight: 203.8 lb. oz. 92.443 kg. Patient's BMI: 30.1 3. Vital Signs: BP: 147/96 Pulse: 74 Resp: 16 Temp: 02 Sat: 100 ECG Mon: 4. Pain Intensity: 8-9 5. Fall Risk: Dizziness: N Needs help standing or walking: N Fallen in the last 3 months: N Fall risk comments: 6. Patient on Blood Thinner: None 7. History of Hypertension: Y 8. Opioid Therapy greater than 6 weeks: Y Opiate Contract Signed: 01/18/18 9. Risk Assessment Tool Provided: Opioid Risk Tool 10. Functional Assessment Tool: 11. Recreational Drug Use: Never Drug Type: Tobacco Use: Never Smoker Tobacco Type: Amount or Packs/day: How Many Years: Alcohol Use: No Frequency: Quant:
--- NOTE | 2019-04-07 08:44 | HPC ---
[facility] [address] [place] [address] PAIN MANAGEMENT CONSULTATION Name: MEGHANA MORSE JR [facility] [id number] Admission: 04/04/19 Attend Phys: Susan Gonzalez Discharge: Date of : 67 Report #: [id number] THIS REPORT FOR: //name// CC: Susan Benavides DATE OF SERVICE: 04/04/2019 CHIEF COMPLAINT: Low back pain and bilateral knee pain. HISTORY OF PRESENT ILLNESS: This is a pleasant 54-year-old gentleman who returns to the pain clinic today for refill of his medications. 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 The patient does tell me he was wondering if he could have increase in his Flexeril tablets. He does take those every evening before bedtime and he finds very beneficial in helping him sleep and relieve some of his muscle spasms that he is out of that medication. The patient tells me most of his pain again is located in his lower back and knees. It is a sharp, achy stiffness, worse with working or after prolonged sitting that the medications and hot baths and reclining in his chair beneficial. He denies any problems with constipation or daytime sleepiness. ALLERGIES: No known drug allergies. MEDICATIONS: Flexeril 10 mg at bedtime, hydrocodone 5/325 p.r.n., multivitamin, hydrochlorothiazide, amlodipine and Mervat. PQRS: 1. He has arthritic changes in his back related to his scoliosis as well as his bilateral knees. He denies any rheumatoid arthritis. 2. Height is 5 feet 9 inches, weight is 203, BMI is 30. 3. VITAL SIGNS: Blood pressure 147/96, pulse is 74, respirations 16, oxygen sat is 100. 4. Pain score is 8-9. 5. Fall risk. Denies dizziness, does not need help walking or standing, has not fallen in the last 3 months. 6. The patient is not on any blood thinners. He does have a history of hypertension. 7. Opioid therapy is greater than 6 weeks; therefore, an opioid signed contract is on the chart. His risk assessment tool is low. Functional assessment is 51/70. 8. Recreational drug use, he denies. He is not a smoker and does not drink alcohol. [address] [address] PAIN MANAGEMENT CONSULTATION Name: MEGHANA MORSE Room #: REG [facility].#: [id number] Admission: 04/04/19 Attend Phys: Susan Gonzalez Discharge: Date of : 67 Report #: [id number] According to the prescription monitoring system, the patient is filling appropriately for his medications. He is slightly pastime for his refills since he is taking less on some days. PHYSICAL EXAMINATION: GENERAL: This is a well-developed, well-nourished 54-year-old gentleman who appears his stated age, placing his current pain score today at 8-9. HEENT: Normocephalic, atraumatic. Extraocular eye muscles are intact. Mucous membranes are moist. NECK: Without adenopathy or JVD. MUSCULOSKELETAL: The patient has without significant kyphosis, but he does have scoliosis. His right scapula protrudes slightly. There is asymmetry in his upper back. His lower extremity strength judged to be 5/5 with equal muscle tone and symmetry. He has tenderness in his bilateral knees. He does walk with a slightly antalgic gait. IMPRESSION: 1. Chronic pain. 2. History of scoliosis with increased spasticity. 3. Osteoarthritis. 4. Management of high risk medications under terms of written opioid agreement. We reviewed the fact that opiate medications are being used to provide analgesia adequate to support activities of daily living, not attempting to achieve a specific pain score on the 0-10 Visual Analog Scale. The current opiate medications are providing sufficient analgesia to allow the patient to participate in activities of daily living. The patient is not exhibiting any aberrant behavior suggestive of drug diversion. The patient is not having any adverse reactions to medications. The patient is not suffering from daytime somnolence or mental acuity changes. The patient is managing opiate-induced constipation with appropriate gvtg-njs-qwwarko agents and dietary considerations. The patient was counseled on concern for caution with operating a motor vehicle while using opiate medications. A physical exam was performed and the patient's functional status was evaluated. All patients with back pain were advised against the bed rest greater than 4 days and were advised to return to normal activities. Pain score assessment was noted and the treatment plan was reviewed with the patient. All current medications, both prescribed and OTC were reviewed and reconciled on the electronic medical record. Tobacco screening was accomplished and smoking cessation was advised when indicated. BMI was noted and diet/exercise modification was recommended for all patients following outside normal parameters. I reviewed with the patient today their responsibilities to safeguard prescription medications, reviewed their responsibility to utilize medications [address] [address] PAIN MANAGEMENT CONSULTATION Name: MEGHANA MORSE JR Room #: REG [facility]#: [id number] Admission: 04/04/19 Attend Phys: Susan Gonzalez Discharge: Date of : 67 Report #: [id number] only as prescribed by the physician. They are to seek and receive pain medications only from 1 physician group ( [facility]). They are to use 1 pharmacy and keep the clinic informed if they change pharmacies. Their responsibilities include making followup visits in a timely fashion and to avoid abrupt discontinuation of medication usage. Their responsibilities further include bringing their medications (bottles from the pharmacy with residual pills) to the visit for possible confirmation of pill counts and the patient understands it is their responsibility to submit to random drug screens to ensure both that the medications prescribed are present, and that no other controlled substances are present. All prescriptions provided today were generated electronically. PLAN: 1. We discussed treatment options with the patient today. The patient is doing quite well on his current pain regimen. Scripts were given for hydrocodone 5/325, #90 for release today and 4 weeks. This places him at 15 morphine mEq according to the CDC guidelines and some days, he does not require any pain pills and other days, he does require at least 3-4 depending on his work. 2. The patient requests a slight increase in his Flexeril. I explained to him that we only want him taking one tablet a day, so I will give him an additional refill, that way if his medications last longer than 3 months which is fine and he will not be out of his Flexeril. Scripts were given today for 10 mg with #30 with 2 additional refills. 3. We were going to obtain the urine specimen today, but he had not taken his medicines for several days since his work schedule has been light and he has been out of his Flexeril. We will recheck this in the future. 4. The patient did ask about a handicapped placard. We explained to him that he does not qualify based on the guidelines that they have set. Dr. Dawson did see the patient and explained this as well and collaborated care today. <ELECTRONICALLY SIGNED> By: Susan Gonzalez 04/07/19 0844 [id number] Susan Gonzalez /ruht
== END ==
LOC: PAIN 06:39
DX: M54.5 Low back pain (principal); G89.29 Other chronic pain; M41.9 Scoliosis, unspecified; M19.90 Unspecified osteoarthritis, unspecified site; Z79.899 Other long term (current) drug therapy

== ENCOUNTER → 2019-06-04 | Outpatient (CLI) | payer BC, OTHER ==
[~2019-06-04] VITALS: Ht 175.3 cm; Wt 91.3 kg
[2019-06-04 14:24] VITALS: BP 149/83
--- NOTE | 2019-06-04 14:39 | NUR ---
Pain Clinic Assessment: 1. History of Osteoarthritis: NO History of Rheumatoid Arthritis: NO 2. Height: 5 ft. 9 in. 175.3 cm. Weight: 201.2 lb. oz. 91.264 kg. Patient's BMI: 29.7 3. Vital Signs: BP: 149/83 Pulse: 79 Resp: 14 Temp: 02 Sat: 99 ECG Mon: 4. Pain Intensity: 8-9 5. Fall Risk: Dizziness: N Needs help standing or walking: N Fallen in the last 3 months: N Fall risk comments: 6. Patient on Blood Thinner: None 7. History of Hypertension: Y 8. Opioid Therapy greater than 6 weeks: Y Opiate Contract Signed: 01/18/18 9. Risk Assessment Tool Provided: Opioid Risk Tool 10. Functional Assessment Tool: 11. Recreational Drug Use: Never Drug Type: Tobacco Use: Never Smoker Tobacco Type: Amount or Packs/day: How Many Years: Alcohol Use: No Frequency: Quant:
--- NOTE | 2019-06-04 14:39 | NUR ---
Pain Clinic Assessment: 1. History of Osteoarthritis: NO History of Rheumatoid Arthritis: NO 2. Height: 5 ft. 9 in. 175.3 cm. Weight: 201.2 lb. oz. 91.264 kg. Patient's BMI: 29.7 3. Vital Signs: BP: 149/83 Pulse: Resp: Temp: 02 Sat: ECG Mon: 4. Pain Intensity: 8-9 5. Fall Risk: Dizziness: N Needs help standing or walking: N Fallen in the last 3 months: N Fall risk comments: 6. Patient on Blood Thinner: None 7. History of Hypertension: Y 8. Opioid Therapy greater than 6 weeks: Y Opiate Contract Signed: 01/18/18 9. Risk Assessment Tool Provided: Opioid Risk Tool 10. Functional Assessment Tool: 11. Recreational Drug Use: Never Drug Type: Tobacco Use: Never Smoker Tobacco Type: Amount or Packs/day: How Many Years: Alcohol Use: No Frequency: Quant:
--- NOTE | 2019-07-04 08:25 | HPC ---
[facility] [address] [place] [address] PAIN MANAGEMENT CONSULTATION Name: MEGHANA MORSE JR [facility] [id number] Admission: 06/04/19 Attend Phys: Carmelo Dawson MD Discharge: Date of : 67 Report #: [id number] THIS REPORT FOR: //name// CC: Magui Dawson DATE OF SERVICE: 06/04/2019 PRIMARY CARE PHYSICIAN: Magui Benavides DO FOLLOWUP COMPLAINT: Here for medication renewal. HISTORY: The patient is a 54-year-old gentleman who has been followed in the pain clinic. 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 He has problems with scoliosis. He has noticed increased pain and discomfort in the upper back area. He finds that his current medical regimen is helpful in decreasing his pain and discomfort and he has returned today with the hope of renewing his medications. It involves his knees as well. Notes that the pain can be described as sharp, aching. He is experiencing stiffness with twisting. Rates his pain today as an 8-9. Pain is exacerbated by prolonged sitting, bending, lying down as well as with the weather pattern changes. Use of a recliner medications in a hot bath or soothing. He does not have any problems with his medications. ALLERGIES: No known drug allergies. CURRENT MEDICATIONS: Flexeril 10 mg at bedtime, hydrocodone 5/325 one p.o. p.r.n., multivitamins, hydrochlorothiazide, amlodipine, Mervat. PAIN CLINIC ASSESSMENT/PQRS: 1. The patient has arthritic changes in his upper back. He does have scoliosis as well as bilateral knee pain. He is not being treated for rheumatoid arthritis. 2. Height 5 feet 9 inches, weight 201 pounds, BMI is 29.7. 3. Vital signs: Blood pressure 148/85, pulse 79, respiratory rate 14, room air saturation is 99%. 4. Pain intensity 8-10. 5. Fall risk. The patient has not fallen in the last 3 months. 6. Blood thinner. The patient is not on a blood thinning medication. 7. Hypertension. The patient is being treated for hypertension. 8. Opioids greater than 6 weeks. The patient receives medication from one source, pain clinic. 9. Risk assessment tool, low for opioid use. 10. Functional assessment tool 51/70. 11. Recreational drug use: The patient denies. 12. Tobacco: [place] [address] PAIN MANAGEMENT CONSULTATION Name: MEGHANA MORSE Room #: REG [facility]#: [id number] Admission: 06/04/19 Attend Phys: Carmelo Dawson MD Discharge: Date of : 67 Report #: [id number] 13. Alcohol. The patient denies use of alcoholic beverages. PHYSICAL EXAMINATION: GENERAL: The patient is a well-developed, well-nourished white male. Appears his stated age. He is alert and oriented x 3. His affect is appropriate. Speech is fluent. HEENT: Normocephalic, atraumatic. Extraocular eye muscles intact. Sclerae nonicteric. Mucous membranes are moist. NECK: Without adenopathy or JVD. Upper back pain is noted with some complaints. The patient is wearing glasses. He is unaccompanied. ABDOMEN: Nontender. MUSCULOSKELETAL: Without significant kyphosis. The patient does have some right asymmetry. Upper extremity muscle strength judged to be 5/5 for the major muscle groups in the upper extremity. Muscle strength to the lower extremity is judged to be 5/5 for the major muscle groups in the lower extremity. IMPRESSION: 1. Chronic pain with left shoulder discomfort. 2. History of scoliosis which is increased with spasticity and changes in weather. 3. Gastroesophageal reflux. 4. Possibility of surgical intervention in the future. RECOMMENDATIONS: We have discussed the options with the patient. At this juncture, he feels that conservative treatment is the most appealing at this juncture. He will continue with his medications. We have discussed the possibility of using a brace in the past. At this juncture, the patient's medications will be renewed. He feels that the hydrocodone is helpful. Feels that the Flexeril medications are helpful. He will continue with their use. The possible complications of addiction were discussed. The patient has not shown any addictive behavior. He does not have any problems with his mentation. He is able to think clearly. He has had no problems with his job. At this juncture, we will renew the medications. A script for Flexeril 10 mg has been renewed. The patient will also continue with hydrocodone 5 mg 1 p.o. b.i.d. as needed. We will continue with the patient's current pain control using a complex medical regimen to help control the pain. We would like to thank you for letting us participate in his care. He will call us if he has any concerns. <ELECTRONICALLY SIGNED> By: Carmelo Dawson MD 07/04/19 0825 1333 [id number] Carmelo Dawson MD /PMT
== END ==
LOC: PAIN 07:09
DX: G89.29 Other chronic pain (principal); M41.80 Other forms of scoliosis, site unspecified; K21.9 Gastro-esophageal reflux disease without esophagitis

== ENCOUNTER → 2019-08-06 | Outpatient (CLI) | payer BC, OTHER ==
[~2019-08-06] VITALS: Ht 175.3 cm; Wt 92.3 kg
[2019-08-06 10:06] VITALS: BP 136/88
--- NOTE | 2019-08-06 10:19 | NUR ---
Pain Clinic Assessment: 1. History of Osteoarthritis: NO History of Rheumatoid Arthritis: NO 2. Height: 5 ft. 9 in. 175.3 cm. Weight: 203.4 lb. oz. 92.262 kg. Patient's BMI: 30.0 3. Vital Signs: BP: 136/88 Pulse: 77 Resp: 16 Temp: 02 Sat: 98 ECG Mon: 4. Pain Intensity: 0-TODAY, 7-8 DAILY AVG 5. Fall Risk: Dizziness: N Needs help standing or walking: N Fallen in the last 3 months: N Fall risk comments: 6. Patient on Blood Thinner: None 7. History of Hypertension: Y 8. Opioid Therapy greater than 6 weeks: Y Opiate Contract Signed: 01/18/18 9. Risk Assessment Tool Provided: Opioid Risk Tool 10. Functional Assessment Tool: 11. Recreational Drug Use: Never Drug Type: Tobacco Use: Never Smoker Tobacco Type: Amount or Packs/day: How Many Years: Alcohol Use: No Frequency: Quant:
--- NOTE | 2019-08-07 08:40 | HPC ---
[facility] [address] [place] [address] PAIN MANAGEMENT CONSULTATION Name: MEGHANA MORSE JR Room #: REG [facility].#: [id number] Admission: 08/06/19 Attend Phys: Susan Gonzlaez Discharge: Date of : 67 Report #: [id number] THIS REPORT FOR: //name// CC: Susan Gonzalez MD DATE OF SERVICE: 08/06/2019 CHIEF COMPLAINT: Scoliosis and back pain. HISTORY OF PRESENT ILLNESS: This is a very pleasant 54-year-old gentleman who returns to the pain clinic today for refill of his medications that he uses to help treat his ongoing low back pain and bilateral knee pain. 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 This is a very active and strenuous job for him, though he feels that if he takes his hydrocodone occasionally it does work to decrease his pain. He reports that recently he had been doing some patch work that required him to be less physical and those days, he did not require any pain medicines, but when he is actually spreading concrete and finishing it, he does require to take several of his hydrocodone a day. Today, he reports a pain score of 0, but it could be as high as 7 on days where he is more active. His pain is a sharp, achy stiffness that is worse with twisting and bending over and weather changes. He feels that the medications and hot baths and reclining are very beneficial. He denies any problems with constipation or daytime sleepiness. Today, he is requesting refills of his medicines. ALLERGIES: No known drug allergies. CURRENT LIST OF MEDICATIONS: Hydrocodone 5/325 p.r.n., Flexeril 10 mg at bedtime, Centrum Silver, hydrochlorothiazide 12.5 mg daily, amlodipine 5 mg daily and Mervat. PQRS: 1. He has arthritic changes in his upper back as well as scoliosis and he has bilateral knee arthritis. He denies being treated for rheumatoid arthritis. 2. Height is 5 feet 9 inches, weight is 203, BMI is 30. 3. Vital signs 136/88, pulse is 77, respirations 16, oxygen sat is 98, pain score is 0 out of 10 currently. 4. Denies dizziness, does not need help walking or standing, has not fallen in the last 3 months. 5. The patient is not on any blood thinners, but does take medicine for hypertension. 6. Opiate therapy is greater than 6 weeks; therefore, an opioid signed contract is on the chart. Risk assessment tool is low. Functional assessment is 28/70. 7. Recreational drug use, he denies. He is not a smoker [place] [address] PAIN MANAGEMENT CONSULTATION Name: MEGHANA MORSE Room #: REG [facility]#: [id number] Admission: 08/06/19 Attend Phys: Susan Gonzalez Discharge: Date of : 67 Report #: [id number] alcohol. According to the prescription monitoring system, the patient is filling appropriately for his medications in a timely fashion from Dr. Dawson. He is due to fill these medications this week. We will check a random drug screen on this patient at his next visit. According to the CDC guidelines, his morphine mEq is 15, well below their guidelines. PHYSICAL EXAMINATION: GENERAL: This is alert and orientated 54-year-old gentleman who appears his stated age, placing his current pain score at 0/10. He is alert and orientated and his affect is appropriate. HEENT: Normocephalic, atraumatic. Extraocular eye muscles are intact. Mucous membranes are moist. NECK: Without adenopathy or JVD. MUSCULOSKELETAL: He is without significant kyphosis, but he does suffer from scoliosis. He has pain in his lumbar sacral area as well as tenderness in his bilateral knees. His lower extremity strength judged to be 5/5 in all major muscle groups. IMPRESSION: 1. Chronic back pain. 2. History of scoliosis which is increased with spasticity. 3. On scheduled opioid medications under written agreement. We reviewed the fact that opiate medications are being used to provide analgesia adequate to support activities of daily living, not attempting to achieve a specific pain score on the 0-10 Visual Analog Scale. The current opiate medications are providing sufficient analgesia to allow the patient to participate in activities of daily living. The patient is not exhibiting any aberrant behavior suggestive of drug diversion. The patient is not having any adverse reactions to medications. The patient is not suffering from daytime somnolence or mental acuity changes. The patient is managing opiate-induced constipation with appropriate ltlv-mxr-ygsdubh agents and dietary considerations. The patient was counseled on concern for caution with operating a motor vehicle while using opiate medications. A physical exam was performed and the patient's functional status was evaluated. All patients with back pain were advised against the bed rest greater than 4 days and were advised to return to normal activities. Pain score assessment was noted and the treatment plan was reviewed with the patient. All current medications, both prescribed and OTC were reviewed and reconciled on the electronic medical record. Tobacco screening was accomplished and smoking cessation was advised when indicated. BMI was noted and diet/exercise modification was recommended for all patients following outside normal parameters. [address] [address] PAIN MANAGEMENT CONSULTATION Name: MEGHANA MORSE JR Room #: REG [facility]#: [id number] Admission: 08/06/19 Attend Phys: Susan Gonzalez Discharge: Date of : 67 Report #: [id number] I reviewed with the patient today their responsibilities to safeguard prescription medications, reviewed their responsibility to utilize medications only as prescribed by the physician. They are to seek and receive pain medications only from 1 physician group ( [facility]). They are to use 1 pharmacy and keep the clinic informed if they change pharmacies. Their responsibilities include making followup visits in a timely fashion and to avoid abrupt discontinuation of medication usage. Their responsibilities further include bringing their medications (bottles from the pharmacy with residual pills) to the visit for possible confirmation of pill counts and the patient understands it is their responsibility to submit to random drug screens to ensure both that the medications prescribed are present, and that no other controlled substances are present. All prescriptions provided today were generated electronically. PLAN: 1. We discussed treatment options with the patient today. The patient finds his hydrocodone very beneficial in controlling most of his pain. He is able to be active in his job with the aid of his hydrocodone. We will refill these today 5/325, #90, for today and 4-week release. 2. The patient takes the Flexeril 10 mg at bedtime. He finds this beneficial in his muscle spasms in his midback, allowing him to have a full night sleep. We will refill a script for 90 tablets with one additional refill. This is a 6-month supply of his Flexeril 10 mg. 3. We will check a random drug screen on this patient in his next visit. The patient is seen today in collaboration with Dr. Alexis Dawson who did see the patient as well. <ELECTRONICALLY SIGNED> By: Susan Gonzalez 08/07/19 0840 [id number] Susan Gonzalez /nt
== END ==
LOC: PAIN 06:54
DX: M54.9 Dorsalgia, unspecified (principal); G89.29 Other chronic pain; M41.86 Other forms of scoliosis, lumbar region

== ENCOUNTER → 2019-10-03 | Outpatient (CLI) | payer BC, OTHER ==
[~2019-10-03] VITALS: Ht 172.7 cm; Wt 94.1 kg
[2019-10-03 08:10] VITALS: BP 152/100
--- NOTE | 2019-10-03 08:19 | NUR ---
Pain Clinic Assessment: 1. History of Osteoarthritis: NO History of Rheumatoid Arthritis: NO 2. Height: 5 ft. 8 in. 172.7 cm. Weight: 207.4 lb. oz. 94.076 kg. Patient's BMI: 31.5 3. Vital Signs: BP: 152/100 Pulse: 83 Resp: 20 Temp: 02 Sat: 95 ECG Mon: 4. Pain Intensity: 10 5. Fall Risk: Dizziness: N Needs help standing or walking: N Fallen in the last 3 months: N Fall risk comments: 6. Patient on Blood Thinner: None 7. History of Hypertension: Y 8. Opioid Therapy greater than 6 weeks: Y Opiate Contract Signed: 01/18/18 9. Risk Assessment Tool Provided: Opioid Risk Tool 10. Functional Assessment Tool: 11. Recreational Drug Use: Never Drug Type: Tobacco Use: Never Smoker Tobacco Type: Amount or Packs/day: How Many Years: Alcohol Use: No Frequency: Quant:
--- NOTE | 2019-10-06 08:18 | HPC ---
[facility] [address] [address] PAIN MANAGEMENT CONSULTATION Name: MEGHANA MORSE JR Room #: REG [facility].#: [id number] Admission: 10/03/19 Attend Phys: Susan Gonzalez Discharge: Date of : 67 Report #: [id number] THIS REPORT FOR: cc: Magui Benavides,Magui Olivera,Susan MARTIN ~ THIS REPORT FOR: //name// CC: Susan Benavides DATE OF SERVICE: 10/03/2019 CHIEF COMPLAINT: Low back pain, scoliosis. HISTORY OF PRESENT ILLNESS: This is a very pleasant 54-year-old gentleman who returns to the pain clinic today for refill of his medication. He reports that his pain has increased because he is having to be more active in his job. He has recently taken on another job with a different [employer] company that is requiring more physical labor than his normal job at [employer]. This has caused him to have more pain in his lower back and his knees. He reports it as sharp, aching pain and stiffness, rating his pain score 10/10 today. He is hopeful that this job situation will change in the next 2 weeks. His pain is worse with weather changes as well and bending over. His medications have been beneficial as well as sitting in his recliner after work and taking hot baths. Today, he is requesting refills of his medication of hydrocodone. ALLERGIES: No known drug allergies. CURRENT LIST OF MEDICATIONS: Hydrocodone 5/325 t.i.d. p.r.n., Flexeril 10 mg at bedtime, multivitamin, hydrochlorothiazide, amlodipine and allergy medicines. PQRS: 1. He has osteoarthritic changes in his back and knees. He is not being treated for rheumatoid arthritis. 2. Height is 5 feet 9 inches, weight is 207 and BMI is 31. 3. Vital signs 152/100, pulse is 83, respirations 20, oxygen sat is 95. 4. Pain score is 10/10 with activity. 5. Denies dizziness, does not need help walking or standing, has not fallen in the last 3 months. 6. The patient is not on any blood thinners, but does take medicine for hypertension. 7. Opiate therapy is greater than 6 weeks; therefore, an opioid signed contract is on the chart. Risk assessment tool is low. Functional assessment is 28/70. 8. Recreational drug use, he denies. He is not a smoker and does not drink alcohol. [address] [address] PAIN MANAGEMENT CONSULTATION Name: MEGHANA MORSE JR Room #: REG [facility]#: [id number] Admission: 10/03/19 Attend Phys: Susan Gonzalez Discharge: Date of : 67 Report #: [id number] According to the prescription monitoring system, the patient is due to fill his medications today. According to the CDC guidelines, his morphine mEq per day is 15. PHYSICAL EXAMINATION: GENERAL: This is a well-developed, well-nourished white gentleman who appears his stated age of 54. Current pain score is 10/10. HEENT: Normocephalic, atraumatic. Extraocular eye muscles are intact. Mucous membranes are moist. MUSCULOSKELETAL: He is without significant kyphosis, but he does have scoliosis in his thoracic and lumbar spine. Upper extremity strength judged to be 5/5 in all major muscle groups. His lower extremity strength judged to be 5/5 as well. Has tenderness in the lumbosacral region of his back and pain in his bilateral knees, worse with ambulation and squatting. IMPRESSION: 1. Chronic pain, multiple pain generators. 2. History of scoliosis with increased spasticity. 3. Management of high risk medications under terms of written opioid agreement. 4. Osteoarthritis. We reviewed the fact that opiate medications are being used to provide analgesia adequate to support activities of daily living, not attempting to achieve a specific pain score on the 0-10 Visual Analog Scale. The current opiate medications are providing sufficient analgesia to allow the patient to participate in activities of daily living. The patient is not exhibiting any aberrant behavior suggestive of drug diversion. The patient is not having any adverse reactions to medications. The patient is not suffering from daytime somnolence or mental acuity changes. The patient is managing opiate-induced constipation with appropriate brmx-plt-yvjfuqd agents and dietary considerations. The patient was counseled on concern for caution with operating a motor vehicle while using opiate medications. PLAN: 1. We discussed treatment options with the patient today. The patient does find his hydrocodone beneficial, though he has had increased pain due to job issues and working more physically the last month at his current job situation. The patient is not requesting any increase in his opioid medications. 2. We will refill his hydrocodone 5/325 three times a day, #90 for 2 months. These will be written by Dr. Alexis Dawson. 3. He is not needing refills of the Flexeril at this present time. 4. We will collect a random drug screen today. [address] [address] PAIN MANAGEMENT CONSULTATION Name: MEGHANA MORSE JR Room #: [facility]#: [id number] Admission: 10/03/19 Attend Phys: Susan Gonzalez Discharge: Date of : 67 Report #: [id number] 5. The patient will return in 2 months. Seen today in collaboration with Dr. Alexis Dawson. <ELECTRONICALLY SIGNED> By: Susan Gonzalez 10/06/19 0818 1044 [id number] Susan Gonzalez /ruth
== END ==
LOC: PAIN 06:50
DX: M54.5 Low back pain (principal); G89.29 Other chronic pain; M19.90 Unspecified osteoarthritis, unspecified site; Z87.39 Personal history of other diseases of the musculoskeletal system and connective tissue; Z79.899 Other long term (current) drug therapy

== ENCOUNTER → 2019-11-26 | Outpatient (CLI) | payer BC, OTHER ==
[~2019-11-26] VITALS: Ht 172.7 cm; Wt 91.7 kg
--- NOTE | ~2019-11-26 | HPC ---
[facility] [address] [place] [address] PAIN MANAGEMENT CONSULTATION Name: MEGHANA MORSE JR [facility] [id number] Admission: 11/26/19 Attend Phys: Carmelo Dawson MD Discharge: Date of : 67 Report #: [id number] THIS REPORT FOR: cc: Magui Benavides,Carmelo Adams MD ~ CC: Magui Dawson DATE OF SERVICE: 11/26/2019 CHIEF COMPLAINT: The medications are helpful. HISTORY: The patient is a 54-year-old gentleman who has been followed in the pain clinic. 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 He finds this a very physical and laborious job. He works for [employer]. At this point, he feels his medications are helpful. Today, he rates his pain as a 0/10. He has not started working today. He has had some abdominal discomfort. He ate a pizza. He was told that the stomach pain that he was having after the pizza was a result of his gallbladder. He is considering having his gallbladder removed in the near future. He does have a history of diverticulosis, but it did not seem like diverticulosis was at the cause of this problem. ALLERGIES: No known drug allergies. CURRENT MEDICATIONS: Hydrocodone 5/325 one p.o. t.i.d., Flexeril 10 mg at bedtime, multivitamins, hydrochlorothiazide, amlodipine, allergy medications. PAIN CLINIC ASSESSMENT AND PQRS: 1. The patient has some arthritic changes in his back and his knees. He is not being treated for rheumatoid arthritis. He does have scoliosis in the upper back. 2. Rheumatoid arthritis. The patient is not being treated for rheumatoid arthritis. 3. Height 5 feet 8 inches, weight 202 pounds, BMI is 30. 4. Vital Signs: Blood pressure 133/91, pulse 85, respiratory rate 16, room air saturation is 100%. 5. Pain intensity 0/10. 6. Fall history: The patient has not fallen. 7. Blood thinner. The patient is not on a blood thinning medication. 8. Hypertension. The patient is being treated for hypertension. 9. Opioids greater than 6 weeks. The patient received medication from one source is primary. 10. Risk assessment tool, low for opioid use. 11. Functional assessment tool of . [address] [address] PAIN MANAGEMENT CONSULTATION Name: MEGHANA MORSE [facility] [id number] Admission: 11/26/19 Attend Phys: Carmelo Dawson MD Discharge: Date of : 67 Report #: [id number] 12. Recreational drug use: The patient denies. 13. Tobacco: The patient has never smoked. 14. Alcohol. The patient denies frequent use of alcoholic beverages. PHYSICAL EXAMINATION: GENERAL: The patient is a well-developed, well-nourished white male. Appears his stated age. He is alert and oriented x 3. His affect is appropriate. Speech is fluent. He appears happy. HEENT: Normocephalic, atraumatic. Extraocular eye muscles intact. Sclerae nonicteric. Mucous membranes are moist. NECK: Without adenopathy. MUSCULOSKELETAL: Without significant kyphosis. Does have scoliosis in the thoracic and lumbar spine. EXTREMITIES: Upper extremity muscle strength judged to be 5/5 for the major muscle groups in the upper extremity. His lower extremities judged to be 5/5 as well. Has some discomfort when present in the lumbosacral area. Has some bilateral knee pain, which can be exacerbated by squatting with ambulation after working at his job on concrete. IMPRESSION: 1. Chronic pain with multiple pain generators. 2. History of scoliosis with increased spasticity. 3. Management of pain with opioids. 4. Osteoarthritis. RECOMMENDATIONS: We discussed treatment options with the patient. At this juncture, we will continue with his medications. He states that the medications are helpful. They do not cloud his sensorium. He is able to think clearly. He is able to work with machinery at his job without any problems. He continues to find these medications efficacious. He rates his pain as a 0/10 today. He states that he does have a job where the coworkers are much younger. Again, with his medication he is able to keep up with them. A script for his medications has been provided. He will continue with hydrocodone 5/325 one p.o. t.i.d. as needed. We will also use Flexeril 10 mg at bedtime p.r.n. We would like to thank you for letting us participate in his care. We hope he continues to improve. The patient will undergo surgery for his gallbladder in the future. It might be some time because he elects of surgeries have been placed on hold given the peak of COVID-19 deaths. By: [id number] Carmelo Dawson MD /JOHNNY
[2019-11-26 08:16] VITALS: BP 133/91
--- NOTE | 2019-11-26 08:27 | NUR ---
Pain Clinic Assessment: 1. History of Osteoarthritis: BACK History of Rheumatoid Arthritis: Not Applicable 2. Height: 5 ft. 8 in. 172.7 cm. Weight: 202.2 lb. oz. 91.717 kg. Patient's BMI: 30.8 3. Vital Signs: BP: 133/91 Pulse: 85 Resp: 16 Temp: 02 Sat: 100 ECG Mon: 4. Pain Intensity: 0 5. Fall Risk: Dizziness: N Needs help standing or walking: N Fallen in the last 3 months: N Fall risk comments: 6. Patient on Blood Thinner: None 7. History of Hypertension: Y 8. Opioid Therapy greater than 6 weeks: Y Opiate Contract Signed: 01/18/18 9. Risk Assessment Tool Provided: Opioid Risk Tool 10. Functional Assessment Tool: 11. Recreational Drug Use: Never Drug Type: Tobacco Use: Never Smoker Tobacco Type: Amount or Packs/day: How Many Years: Alcohol Use: No Frequency: Quant:
== END | disposition home or self-care (01) ==
LOC: PAIN 06:46
DX: G89.29 Other chronic pain (principal); M41.86 Other forms of scoliosis, lumbar region; M19.90 Unspecified osteoarthritis, unspecified site; Z98.890 Other specified postprocedural states; Z79.899 Other long term (current) drug therapy; Z79.891 Long term (current) use of opiate analgesic

== ENCOUNTER → 2020-01-28 | Outpatient (CLI) | payer BC, OTHER ==
[~2020-01-28] VITALS: Ht 172.7 cm; Wt 86.9 kg
[2020-01-28 08:10] VITALS: BP 136/96
--- NOTE | 2020-01-28 08:17 | NUR ---
Pain Clinic Assessment: 1. History of Osteoarthritis: BACK History of Rheumatoid Arthritis: Not Applicable 2. Height: 5 ft. 8 in. 172.7 cm. Weight: 191.6 lb. oz. 86.909 kg. Patient's BMI: 29.1 3. Vital Signs: BP: 136/96 Pulse: 72 Resp: 18 Temp: 02 Sat: 100 ECG Mon: 4. Pain Intensity: 8 5. Fall Risk: Dizziness: N Needs help standing or walking: N Fallen in the last 3 months: N Fall risk comments: 6. Patient on Blood Thinner: None 7. History of Hypertension: Y 8. Opioid Therapy greater than 6 weeks: Y Opiate Contract Signed: 01/18/18 9. Risk Assessment Tool Provided: Opioid Risk Tool 10. Functional Assessment Tool: 11. Recreational Drug Use: Never Drug Type: Tobacco Use: Never Smoker Tobacco Type: Amount or Packs/day: How Many Years: Alcohol Use: No Frequency: Quant:
--- NOTE | 2020-01-30 15:51 | HPC ---
[facility] [place] [address] PAIN MANAGEMENT CONSULTATION Name: MEGHANA MORSE JR Room #: REG [facility]#: [id number] Admission: 01/28/20 Attend Phys: Carmelo Dawson MD Discharge: Date of : 67 Report #: [id number] THIS REPORT FOR: cc: Magui Benavides,Carmelo Adams MD ~ CC: Magui Dawson DATE OF SERVICE: 01/28/2020 CHIEF COMPLAINT: I had my gallbladder removed and I am back at work. HISTORY: The patient is a 54-year-old gentleman who has been followed in the pain clinic because of chronic pain. He recently developed increasing discomfort after eating pizza. He was seen by a surgeon. Because of COVID-19 his surgery was postponed until 02/2020. Now that the restrictions have been reduced. The patient elected to have surgery earlier. He states that his gallstones were quite remarkable. They were quite large. He has been feeling relatively well since the surgery. He states he had surgery on Sunday and return to light duty on Sunday. He has returned today for renewal of his medications. He did not receive opioid medications from the surgeon. He indicated that he did have some medications at home. Overall, they have been working relatively well. ALLERGIES: No known drug allergies. CURRENT MEDICATIONS: Hydrocodone 5/325 one p.o. t.i.d., Flexeril 10 mg at bedtime, multivitamins, hydrochlorothiazide, amlodipine, PAIN CLINIC ASSESSMENT AND PQRS: 1. The patient has some changes in his back and his knees. He is not being treated for rheumatoid arthritis. He does have some scoliosis in his upper thoracic area. 2. Rheumatoid arthritis. The patient is not being treated for rheumatoid arthritis. 3. Height 5 feet 8 inches, weight 191 pounds, BMI is 29.1. 4. Vital Signs: Blood pressure 136/96, pulse 72, respiratory rate 18, room air saturation 100%. 5. Pain intensity 04/05. 6. Fall risk. The patient has not fallen in the last 3 months. 7. Blood thinner. The patient is not on a blood thinning medication. 8. Hypertension. The patient is being treated for hypertension. 9. Opioids greater than 6 weeks. The [facility]. 10. Risk assessment tool, low for opioid use. [address] [address] PAIN MANAGEMENT CONSULTATION Name: MEGHANA MORSE Room #: REG [facility]#: [id number] Admission: 01/28/20 Attend Phys: Carmelo Dawson MD Discharge: Date of : 67 Report #: [id number] 11. Functional assessment tool . 12. Recreational drug use. The patient denies. 13. Tobacco: The patient has never smoked. 14. Alcohol. The patient denies use of alcoholic beverages. PHYSICAL EXAMINATION: GENERAL: The patient is a well-developed, well-nourished white male. Appears his stated age. He is alert and oriented x 3. His affect is appropriate. Speech is fluent. HEENT: Normocephalic, atraumatic. Extraocular eye muscles intact. Sclerae nonicteric. Mucous membranes are moist. NECK: Without adenopathy. MUSCULOSKELETAL: The patient without significant kyphosis. He does have scoliosis in the upper thoracic area and in the lumbar spine. EXTREMITIES: Upper extremity muscle strength judged to be 5/5 for the major muscle groups in the upper extremity. Lower extremity muscle strength is 5/5. The patient has bilateral knee pain. Notes that the pain is exacerbated with activities of daily living. 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 IMPRESSION: 1. Chronic pain with multiple pain generators. 2. History of scoliosis with increasing spasticity. 3. Management of pain with opioids. 4. Osteoarthritis. RECOMMENDATIONS: We discussed treatment options with the patient. At this juncture, we will continue with his medications. He feels that things are going reasonably well. He feels that he is healing up reasonably well from the surgery. He does feel better. He is happy that he was able to undergo the surgery prior to February. He has returned to work. He feels that his medications continue to be helpful. He has noticed that the temperature outside has become more humid and temperatures have increased. He continues to work towards remaining hydrated. The patient will continue with his medications. He states that these medications do not cause any problems with his sensorium. He is able to think clearly. He is able to perform his job without any reservations. A script for his medications has been written. They have been sent to his pharmacy. A script for hydrocodone 5/325 one p.o. t.i.d. have been provided for the next 2 months. The patient will also call us if he has any concerns. We would like to thank you for letting us participate in his care. We hope he continues to improve. He will continue with Flexeril one p.o. t.i.d. as needed. [facility] [address] [place] [address] PAIN MANAGEMENT CONSULTATION Name: MEGHANA MORSE JR Room #: [facility]#: [id number] Admission: 01/28/20 Attend Phys: Carmelo Dawson MD Discharge: Date of : 67 Report #: [id number] He is not having any problems with this medication. It does not cause any problems with drowsiness or sleepiness. <ELECTRONICALLY SIGNED> By: Carmelo Dawson MD 01/30/20 1551 [id number] Carmelo Dawson MD /[facility]
== END ==
LOC: PAIN 06:51
PROVIDERS: ATTEND Anesthesiology Pain Medicine
DX: G89.29 Other chronic pain (principal); Z79.899 Other long term (current) drug therapy

== ENCOUNTER → 2020-04-16 | Outpatient (CLI) | payer BC, OTHER ==
[~2020-04-16] VITALS: Ht 172.7 cm; Wt 90.3 kg
[2020-04-16 08:08] VITALS: BP 154/80
--- NOTE | 2020-04-16 08:12 | NUR ---
Pain Clinic Assessment: 1. History of Osteoarthritis: BACK History of Rheumatoid Arthritis: Not Applicable 2. Height: 5 ft. 8 in. 172.7 cm. Weight: 199.0 lb. oz. 90.266 kg. Patient's BMI: 30.3 3. Vital Signs: BP: 154/80 Pulse: 75 Resp: 16 Temp: 02 Sat: 99 ECG Mon: 4. Pain Intensity: 7 5. Fall Risk: Dizziness: N Needs help standing or walking: N Fallen in the last 3 months: N Fall risk comments: 6. Patient on Blood Thinner: None 7. History of Hypertension: Y 8. Opioid Therapy greater than 6 weeks: Y Opiate Contract Signed: 01/18/18 9. Risk Assessment Tool Provided: low-0 10. Functional Assessment Tool: 11. Recreational Drug Use: Never Drug Type: Tobacco Use: Never Smoker Tobacco Type: Amount or Packs/day: How Many Years: Alcohol Use: No Frequency: Quant:
--- NOTE | 2020-05-07 15:50 | HPC ---
[facility] [address] [place] [address] PAIN MANAGEMENT CONSULTATION Name: MEGHANA MORSE JR Room #: REG [facility].#: [id number] Admission: 04/16/20 Attend Phys: Carmelo Dawson MD Discharge: Date of : 67 Report #: [id number] THIS REPORT FOR: cc: Magui Benavides Christine L. DO Brown, N. Wayne MD ~ CC: Magui Dawson DATE OF SERVICE: 04/16/2020 PRIMARY CARE PHYSICIAN: Magui Benavides DO CHIEF COMPLAINT: Low back pain and pain in the knees here for medication renewal. HISTORY: The patient is a 55-year-old gentleman who has been followed in the pain clinic. He has been having pain and discomfort for a number of years. He is experiencing pain in his low back. 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 He feels that his medications are helpful. He notes that his pain is worsened when he is lifting, standing, bending and can be problematic when he sleeps too long. Notes that his pain improves with use of his medications. He also finds that when he goes home, he sits in his recliner and gleans benefit from that. He rates his pain as a 7/10. He feels that his medications are working reasonably well. He feels that his work has improved significantly since his gallbladder has been removed. He has returned today with the hopes of renewing his hydrocodone. ALLERGIES: No known drug allergies. CURRENT MEDICATIONS: Hydrocodone 5/325 one p.o. t.i.d., Flexeril 10 mg at bedtime, multivitamins, hydrochlorothiazide, and amlodipine. PAIN CLINIC ASSESSMENT AND PQRS: 1. The patient has some changes in his back and knees. He is not being treated for rheumatoid arthritis. He does have some scoliosis in the upper thoracic area. 2. Height 5 feet 8 inches, weight 199 pounds, BMI is 30. 3. Vital Signs: Blood pressure 154/80, pulse 75, respiratory rate 16, room air saturation 99%. 4. Pain intensity 03/05. 5. Fall history: The patient has not fallen in the last 3 months. 6. Blood thinner. The patient is not on a blood thinning medication. 7. Hypertension. The patient is being treated for hypertension. 8. Opioids greater than 6 weeks. The patient receives medication from the pain clinic. [address] [address] PAIN MANAGEMENT CONSULTATION Name: MEGHANA MORSE JR Room #: REG [facility]#: [id number] Admission: 04/16/20 Attend Phys: Carmelo Dawson MD Discharge: Date of : 67 Report #: [id number] 9. Risk assessment tool, low for opioid use. 10. Functional assessment tool . 11. Recreational drug use. The patient denies. 12. Tobacco: The patient has never smoked. 13. Alcohol. The patient denies frequent use of alcoholic beverages. PHYSICAL EXAMINATION: GENERAL: The patient is a well-developed, well-nourished white male. Appears his stated age. He is alert and oriented x 3. His affect is appropriate. Speech is fluent. HEENT: Normocephalic, atraumatic. Extraocular eye muscles intact. Sclerae nonicteric. Mucous membranes are moist. NECK: Without adenopathy or JVD. MUSCULOSKELETAL: The patient without significant kyphosis. He does have some upper thoracic scoliosis. EXTREMITIES: Upper extremity muscle strength judged to be 5/5 for the major muscle groups in the upper extremity. Lower extremity muscle strength 5/5 for the major muscle groups in the lower extremity. The patient has bilateral knee pain. Notes worsening of pain with activities of daily living. 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 IMPRESSION: 1. Chronic pain with multiple pain generators. 2. History of scoliosis with increasing spasticity in the upper thoracic area. 3. Chronic management of pain with opioids. 4. Osteoarthritis. RECOMMENDATIONS: We discussed treatment options with the patient. At this juncture, we will continue with his medications. He feels that they are helpful. He is not having any problems with thinking. He is able to execute his job without problems. He has returned today for renewal of the medication. We will continue with his hydrocodone 5 mg 1 p.o. t.i.d. Total of 90 tablets have been provided. The patient will also continue with Flexeril for muscle spasms p.r.n. He will call us if he has any concerns. He feels that he is able to carry out all of his duties on his job without interference from his opioid medications. We would like to thank you for letting us participate in his care. We hope he continues to improve. <ELECTRONICALLY SIGNED> By: Carmelo Dawson MD 05/07/20 1550 [id number] Carmelo Dawson MD /[facility]
== END ==
LOC: PAIN 06:44
PROVIDERS: ATTEND Anesthesiology Pain Medicine
DX: G89.4 Chronic pain syndrome (principal); M25.561 Pain in right knee; M25.562 Pain in left knee; F11.20 Opioid dependence, uncomplicated; M19.90 Unspecified osteoarthritis, unspecified site; Z87.39 Personal history of other diseases of the musculoskeletal system and connective tissue

== ENCOUNTER → 2020-06-16 | Outpatient (CLI) | payer BC, OTHER ==
[~2020-06-16] VITALS: Ht 172.7 cm; Wt 91.4 kg
[~2020-06-16] MED LIST changes: +ZOCOR 20 MG TAB20 M1 PO
[2020-06-16 08:19] VITALS: BP 148/96
--- NOTE | 2020-06-16 08:31 | NUR ---
Pain Clinic Assessment: 1. History of Osteoarthritis: BACK History of Rheumatoid Arthritis: Not Applicable 2. Height: 5 ft. 8 in. 172.7 cm. Weight: 201.6 lb. oz. 91.445 kg. Patient's BMI: 30.7 3. Vital Signs: BP: 148/96 Pulse: 73 Resp: 16 Temp: 02 Sat: 98 ECG Mon: 4. Pain Intensity: 8 5. Fall Risk: Dizziness: N Needs help standing or walking: N Fallen in the last 3 months: N Fall risk comments: 6. Patient on Blood Thinner: None 7. History of Hypertension: Y 8. Opioid Therapy greater than 6 weeks: Y Opiate Contract Signed: 01/18/18 9. Risk Assessment Tool Provided: low-0 10. Functional Assessment Tool: 11. Recreational Drug Use: Never Drug Type: Tobacco Use: Never Smoker Tobacco Type: Amount or Packs/day: How Many Years: Alcohol Use: No Frequency: Quant:
--- NOTE | 2020-06-17 07:30 | HPC ---
[facility] [address] [address] PAIN MANAGEMENT CONSULTATION Name: MEGHANA MORSE JR Room #: REG [facility]..#: [id number] Admission: 06/16/20 Attend Phys: Susan Gonzalez Discharge: Date of : 67 Report #: [id number] CC: Susan Dawson MD DATE OF SERVICE: 06/16/2020 CHIEF COMPLAINT: Chronic low back pain. HISTORY OF PRESENT ILLNESS: This is a very pleasant 55-year-old gentleman, who returns to the pain clinic today for renewal of his hydrocodone that he uses to help treat his ongoing low back pain. He does experience knee pain as well. He does suffer from scoliosis that has been problematic for several years. 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 Today, he is reporting significant soreness in his lower back. He feels that the medication as well as occasional muscle relaxant at bedtime are been beneficial as well as sitting in his recliner. He denies any issues with constipation or daytime somnolence as a result of his medications. Today, he would like to continue on his current medications. ALLERGIES: No known drug allergies. CURRENT LIST OF MEDICATIONS: Zocor, hydrocodone 5/325 p.r.n., Flexeril 10 mg at bedtime, Centrum Silver, hydrochlorothiazide, amlodipine, and allergy medications. PQRS: 1. He has a history of osteoarthritis in his lumbar spine as well as his knees and denies rheumatoid arthritis. 2. Height is 5 feet 8 inches, weight is 201. BMI is 30. 3. Vital signs 148/96, pulse is 73, respirations 16, oxygen sat is 98. 4. Pain score is 8/10. 5. Denies dizziness, does not need help walking or standing, has not fallen in the last 3 months. 6. The patient is not on any blood thinners, but does take medicines for hypertension. 7. Opioid therapy is greater than 6 weeks; therefore, an opioid signed contract is on the chart. 8. His risk assessment is low. Functional assessment is 28/70. 9. Recreational drug use, he denies. He is not a smoker and does not drink alcohol. According to the prescription monitoring system, the patient is due to fill his medications. He does fill them in a timely fashion utilizing [facility]. His morphine mEq according to the CDC guidelines is 15. There is a drug screen on the chart that was appropriate for his medications as well. PHYSICAL EXAMINATION: GENERAL: This is alert and orientated, very pleasant 55-year-old gentleman who is a good historian, placing his current pain score an 8/10. His speech is fluent. HEENT: Normocephalic, atraumatic. Extraocular eye muscles are intact. Sclerae are nonintrinsic. He is wearing a mask. NECK: Without adenopathy or JVD. MUSCULOSKELETAL: The patient is without significant kyphosis, but he does have thoracic scoliosis. Upper extremity strength is symmetrical at 5/5 as well as his lower extremities with good sensation from L1-S2. He has tenderness in his lower lumbar region and pain in his bilateral knees upon standing. IMPRESSION: 1. Chronic pain with multiple pain generators. 2. History of scoliosis with spasticity in his thoracic region. 3. Chronic medication management utilizing scheduled opioids. 4. Osteoarthritis. We reviewed the fact that opiate medications are being used to provide analgesia adequate to support activities of daily living, not attempting to achieve a specific pain score on the 0-10 Visual Analog Scale. The current opiate medications are providing sufficient analgesia to allow the patient to participate in activities of daily living. The patient is not exhibiting any aberrant behavior suggestive of drug diversion. The patient is not having any adverse reactions to medications. The patient is not suffering from daytime somnolence or mental acuity changes. The patient is managing opiate-induced constipation with appropriate [id number] agents and dietary considerations. The patient was counseled on concern for caution with operating a motor vehicle while using opiate medications. PLAN: 1. We discussed treatment options with the patient today. 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 He believes that he would not be able to function at his job without his hydrocodone. Today, we will have Dr. Dawson send electronically his hydrocodone 5/325, #90 to his pharmacy for today and 4 weeks supply. 2. The patient does utilize his Flexeril at bedtime and is not needing a refill at this time. 3. The patient is seen today in collaboration with Dr. Dawson. He will return in 2-month period for refills. <ELECTRONICALLY SIGNED> By: Susan Gonzalez 06/17/20 0730 [id number] 1700 Susan Gonzalez /ruth
== END ==
LOC: PAIN 06:48
PROVIDERS: ATTEND Clinical Nurse Specialist Adult Health
DX: M54.5 Low back pain (principal); G89.29 Other chronic pain; F11.20 Opioid dependence, uncomplicated; M19.90 Unspecified osteoarthritis, unspecified site; Z87.39 Personal history of other diseases of the musculoskeletal system and connective tissue; Z88.8 Allergy status to other drugs, medicaments and biological substances; Z79.899 Other long term (current) drug therapy

== ENCOUNTER → 2020-08-06 | Outpatient (CLI) | payer BC, OTHER ==
[~2020-08-06] VITALS: Ht 172.7 cm; Wt 95.0 kg
[~2020-08-06] MED LIST changes: +CIALIS5 MG PO
[2020-08-06 14:34] VITALS: BP 150/94
== END ==
LOC: PAIN 06:58
PROVIDERS: ATTEND Anesthesiology Pain Medicine
DX: M54.5 Low back pain (principal); M25.561 Pain in right knee; M25.562 Pain in left knee; M19.90 Unspecified osteoarthritis, unspecified site; F11.20 Opioid dependence, uncomplicated; G89.4 Chronic pain syndrome; Z87.39 Personal history of other diseases of the musculoskeletal system and connective tissue

== ENCOUNTER → 2020-09-10 | Outpatient (CLI) | payer BC, OTHER ==
[~2020-09-10] VITALS: Ht 172.7 cm; Wt 94.5 kg
[2020-09-10 08:33] VITALS: BP 143/91
--- NOTE | 2020-09-10 08:38 | NUR ---
Pain Clinic Assessment: 1. History of Osteoarthritis: BACK History of Rheumatoid Arthritis: Not Applicable 2. Height: 5 ft. 8 in. 172.7 cm. Weight: 208.4 lb. oz. 94.530 kg. Patient's BMI: 31.7 3. Vital Signs: BP: 143/91 Pulse: 89 Resp: 18 Temp: 02 Sat: 97 ECG Mon: 4. Pain Intensity: 8 5. Fall Risk: Dizziness: N Needs help standing or walking: N Fallen in the last 3 months: N Fall risk comments: 6. Patient on Blood Thinner: None 7. History of Hypertension: Y 8. Opioid Therapy greater than 6 weeks: Y Opiate Contract Signed: 01/18/18 9. Risk Assessment Tool Provided: low-0 10. Functional Assessment Tool: 11. Recreational Drug Use: Never Drug Type: Tobacco Use: Never Smoker Tobacco Type: Amount or Packs/day: How Many Years: Alcohol Use: No Frequency: Quant:
== END ==
LOC: PAIN 06:55
PROVIDERS: ATTEND Clinical Nurse Specialist Adult Health
DX: G89.29 Other chronic pain (principal); M19.90 Unspecified osteoarthritis, unspecified site; Z79.891 Long term (current) use of opiate analgesic

== ENCOUNTER → 2020-11-05 | Outpatient (CLI) | payer BC, OTHER ==
[~2020-11-05] VITALS: Ht 172.7 cm; Wt 94.6 kg
[2020-11-05 09:55] VITALS: BP 145/98
--- NOTE | 2020-11-05 10:01 | NUR ---
Pain Clinic Assessment: 1. History of Osteoarthritis: Left Upper Extremity Right Lower Extremity BACK History of Rheumatoid Arthritis: Not Applicable 2. Height: 5 ft. 8 in. 172.7 cm. Weight: 208.6 lb. oz. 94.620 kg. Patient's BMI: 31.7 3. Vital Signs: BP: 145/98 Pulse: 76 Resp: 14 Temp: 02 Sat: 97 ECG Mon: 4. Pain Intensity: 7 5. Fall Risk: Dizziness: N Needs help standing or walking: N Fallen in the last 3 months: N Fall risk comments: 6. Patient on Blood Thinner: None 7. History of Hypertension: Y 8. Opioid Therapy greater than 6 weeks: Y Opiate Contract Signed: 01/18/18 9. Risk Assessment Tool Provided: low-0 10. Functional Assessment Tool: 11. Recreational Drug Use: Never Drug Type: Tobacco Use: Never Smoker Tobacco Type: Amount or Packs/day: How Many Years: Alcohol Use: No Frequency: Quant:
== END ==
LOC: PAIN 06:48
PROVIDERS: ATTEND Clinical Nurse Specialist Adult Health
DX: M54.5 Low back pain (principal); M25.561 Pain in right knee; M25.562 Pain in left knee; G89.4 Chronic pain syndrome; M19.90 Unspecified osteoarthritis, unspecified site; F11.20 Opioid dependence, uncomplicated

== ENCOUNTER → 2021-01-26 | Outpatient (CLI) | payer BC, OTHER ==
[~2021-01-26] VITALS: Ht 172.7 cm; Wt 96.0 kg
[~2021-01-26] MED LIST changes: +MELOXICAM7.5 MG PO; +OMEPRAZOLE 20 M20 M1 PO
[2021-01-26 08:11] VITALS: BP 152/90
--- NOTE | 2021-01-26 08:15 | NUR ---
Pain Clinic Assessment: 1. History of Osteoarthritis: Left Upper Extremity Right Lower Extremity BACK History of Rheumatoid Arthritis: Not Applicable 2. Height: 5 ft. 8 in. 172.7 cm. Weight: 211.6 lb. oz. 95.981 kg. Patient's BMI: 32.2 3. Vital Signs: BP: 152/90 Pulse: 77 Resp: 18 Temp: 02 Sat: 98 ECG Mon: 4. Pain Intensity: 7 5. Fall Risk: Dizziness: N Needs help standing or walking: N Fallen in the last 3 months: N Fall risk comments: 6. Patient on Blood Thinner: None 7. History of Hypertension: Y 8. Opioid Therapy greater than 6 weeks: Y Opiate Contract Signed: 01/18/18 9. Risk Assessment Tool Provided: low-0 10. Functional Assessment Tool: 11. Recreational Drug Use: Never Drug Type: Tobacco Use: Never Smoker Tobacco Type: Amount or Packs/day: How Many Years: Alcohol Use: No Frequency: Quant:
== END ==
LOC: PAIN 01-19 13:45
PROVIDERS: ATTEND Anesthesiology Pain Medicine
DX: G89.29 Other chronic pain (principal); M54.5 Low back pain; M25.561 Pain in right knee; M25.562 Pain in left knee; M19.90 Unspecified osteoarthritis, unspecified site; Z79.891 Long term (current) use of opiate analgesic; Z79.899 Other long term (current) drug therapy

== ENCOUNTER → 2021-03-30 | Outpatient (CLI) | payer BC, OTHER ==
[~2021-03-30] VITALS: Ht 172.7 cm; Wt 91.9 kg
[2021-03-30 08:18] VITALS: BP 140/94
--- NOTE | 2021-03-30 08:38 | NUR ---
Pain Clinic Assessment: 1. History of Osteoarthritis: Left Upper Extremity Right Lower Extremity BACK History of Rheumatoid Arthritis: Not Applicable 2. Height: 5 ft. 8 in. 172.7 cm. Weight: 202.6 lb. oz. 91.899 kg. Patient's BMI: 30.8 3. Vital Signs: BP: 140/94 Pulse: 77 Resp: 14 Temp: 02 Sat: 99 ECG Mon: 4. Pain Intensity: 9 5. Fall Risk: Dizziness: N Needs help standing or walking: N Fallen in the last 3 months: N Fall risk comments: \ 6. Patient on Blood Thinner: None 7. History of Hypertension: Y 8. Opioid Therapy greater than 6 weeks: Y Opiate Contract Signed: 01/18/18 9. Risk Assessment Tool Provided: low-0 10. Functional Assessment Tool: 11. Recreational Drug Use: Never Drug Type: Tobacco Use: Never Smoker Tobacco Type: Amount or Packs/day: How Many Years: Alcohol Use: No Frequency: Quant:
== END ==
LOC: PAIN 03-25 06:50
PROVIDERS: ATTEND Anesthesiology Pain Medicine
DX: G89.29 Other chronic pain (principal); M19.90 Unspecified osteoarthritis, unspecified site; I10 Essential (primary) hypertension; M41.34 Thoracogenic scoliosis, thoracic region; Z79.891 Long term (current) use of opiate analgesic; Z79.899 Other long term (current) drug therapy; Z90.49 Acquired absence of other specified parts of digestive tract

== ENCOUNTER → 2021-06-01 | Outpatient (CLI) | payer BC, OTHER ==
[~2021-06-01] VITALS: Ht 172.7 cm; Wt 94.8 kg
[2021-06-01 08:18] VITALS: BP 141/95
--- NOTE | 2021-06-01 08:24 | NUR ---
Pain Clinic Assessment: 1. History of Osteoarthritis: Left Upper Extremity Right Lower Extremity BACK History of Rheumatoid Arthritis: Not Applicable 2. Height: 5 ft. 8 in. 172.7 cm. Weight: 209.0 lb. oz. 94.802 kg. Patient's BMI: 31.8 3. Vital Signs: BP: 141/95 Pulse: 78 Resp: 18 Temp: 02 Sat: ECG Mon: 4. Pain Intensity: 1 5. Fall Risk: Dizziness: Needs help standing or walking: Fallen in the last 3 months: Fall risk comments: \ 6. Patient on Blood Thinner: None 7. History of Hypertension: Y 8. Opioid Therapy greater than 6 weeks: Y Opiate Contract Signed: 01/18/18 9. Risk Assessment Tool Provided: low-0 10. Functional Assessment Tool: 11. Recreational Drug Use: Never Drug Type: Tobacco Use: Never Smoker Tobacco Type: Amount or Packs/day: How Many Years: Alcohol Use: No Frequency: Quant:
--- NOTE | 2021-06-01 12:40 | HPC ---
[facility] [address] [address] PAIN MANAGEMENT CONSULTATION Name: MEGHANA MORSE JR Room #: REG [facility].#: [id number] Admission: 06/01/21 Attend Phys: Carmelo Dawson MD Discharge: Date of : 67 Report #: [id number] THIS REPORT FOR: cc: Magui Benavides Christine L. DO Hocker, Amanda [employer]IV[employer]ITY [employer]OR ~ cc: Magui Benavides DO, N Wayne Brown, MD DATE OF SERVICE: 06/01/2021 CHIEF COMPLAINT: Low back pain and bilateral knee pain. HISTORY OF PRESENT ILLNESS: This is a very pleasant 56-year-old gentleman who returns to the pain clinic today for ongoing medical treatment for his back pain. The patient has significant scoliosis that affects his back and he also suffers from osteoarthritis in his knees bilaterally. 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 The bending and twisting do aggravate his pain. He does believe the pain pills are beneficial in helping alleviate that discomfort. Today, he is rating his pain a 1/10 with a pain pill. He reports he was at work earlier today and it was starting to be aggravated with the twisting motion he was performing and the pain pill has subsided his discomfort since driving here to his appointment. He denies any significant constipation or daytime somnolence as a result of his opioid medications. He reports that he does try to change positions and change jobs frequently throughout the day to help alleviate some of his back discomfort. He did find four tablets of hydrocodone a day was beneficial in helping alleviate some more of his pain. He would like to continue at 4 tablets a day if he is able. He reports having about 7 tablets left over at the end of that month that he was able to utilize in the next month. ALLERGIES: No known drug allergies. CURRENT LIST OF MEDICATIONS: Hydrocodone 5/325 q.i.d., Flexeril 10 mg at bedtime, omeprazole, meloxicam, Cialis, Zocor, multivitamin, hydrochlorothiazide, amlodipine. PQRS: 1. He has osteoarthritis in his upper and lower extremities and his back. Denies any rheumatoid arthritis. Height is 5 feet 8 inches, weight is 209. BMI is 31. 2. Vital signs: 141/95, pulse is 78, respirations 18, oxygen sat is 100. 3. Pain score is 1/10. Fall risk, denies dizziness, does not need help walking or standing, has not fallen in the last 3 months. 4. The patient is not on any blood thinners, but does take medicine for hypertension. His opioid therapy is greater than 6 weeks; therefore, an opioid signed contract is on the chart. [address] [address] PAIN MANAGEMENT CONSULTATION Name: MEGHANA MORSE [id number] Admission: 06/01/21 Attend Phys: Carmelo Dawson MD Discharge: Date of : 67 Report #: [id number] 5. Risk assessment is low. Functional assessment is 19/70. 6. Recreational drug use, he denies. He is not a smoker, does not drink alcohol. According to the prescription monitoring system, he is filling appropriately in a timely fashion. His morphine mEq with 4 tablets a day is 20 MME, well below the CDC guidelines. He does have a urine drug screen on the chart, but we will recheck that again at his next visit. PHYSICAL EXAM: GENERAL: This is an alert and orientated, well-developed, well-nourished 56-year-old gentleman who appears his stated age, rating his pain score today at 1/10 with his medications. HEENT: Normocephalic, atraumatic. Extraocular eye muscles are intact. He is wearing a facial covering for COVID precautions. NECK: Without adenopathy or JVD. MUSCULOSKELETAL: The patient is without significant kyphosis or lordosis. He does have scoliosis of his thoracic area and tenderness in his lumbar spine. Bending and twisting do radiate into his legs and increase his pain significantly. He has tenderness in his knees bilaterally from osteoarthritic changes with no edema noted today. Upper and lower extremity strength is symmetrical at 5/5. IMPRESSION: 1. Chronic pain with multiple pain generators. 2. History of scoliosis with spasticity in the thoracic region. 3. Osteoarthritis affecting multiple joints. 4. Chronic opioid management under written agreement. We reviewed the fact that opiate medications are being used to provide analgesia adequate to support activities of daily living, not attempting to achieve a specific pain score on the 0-10 Visual Analog Scale. The current opiate medications are providing sufficient analgesia to allow the patient to participate in activities of daily living. The patient is not exhibiting any aberrant behavior suggestive of drug diversion. The patient is not having any adverse reactions to medications. The patient is not suffering from daytime somnolence or mental acuity changes. The patient is managing opiate-induced constipation with appropriate ktxa-xln-nlfqsva agents and dietary considerations. The patient was counseled on concern for caution with operating a motor vehicle while using opiate medications. PLAN: 1. We discussed treatment options with the patient today. The patient feels his medications are beneficial in controlling his pain, would like to continue with the [address] Dawson had trialled him on for 1 month. He did find that was beneficial in alleviating a significant portion of his pain. 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 After discussion with Dr. Dawson, he agreed to continue him on the 120 tablets per month and he will send electronically two prescriptions of hydrocodone 5/325. 2. The patient does continue with the Flexeril at bedtime. No scripts needed today, but he does find that beneficial in helping alleviate significant muscle spasms. 3. We will collect a random drug screen on him on his next visit in 2 months. Time spent with the patient in consultation, reviewing pertinent imaging, reviewing recent studies and clinical notes and consultation reports, physical examination and correlation of findings to determine possible pain generators and proposed treatment options 15 minutes. Time spent preparing for appointment, reviewing prescription monitoring system reports, reviewing previous records and proposed treatment options, and reviewing current medications 5 minutes. Time spent preparing and sending electronic prescriptions with collaborating physician, Dr. Dawson and documentation of visit and plan of treatment 7 minutes. Total time spent 27 minutes. <ELECTRONICALLY SIGNED> By: Susan Gonzalez 06/01/21 1240 [id number] Susan rainey
== END ==
LOC: PAIN 05-25 06:59
PROVIDERS: ATTEND Clinical Nurse Specialist Adult Health
DX: G89.29 Other chronic pain (principal); M54.50 Low back pain, unspecified; M25.561 Pain in right knee; M25.562 Pain in left knee; M41.84 Other forms of scoliosis, thoracic region; M19.09 Primary osteoarthritis, other specified site

== ENCOUNTER → 2021-08-03 | Outpatient (CLI) | payer BC, OTHER ==
[~2021-08-03] VITALS: Ht 175.3 cm; Wt 96.2 kg
[~2021-08-03] MED LIST changes: +CLOTRIMAZOLE-321 GM TOP
[2021-08-03 08:15] VITALS: BP 147/103
--- NOTE | 2021-08-03 08:21 | NUR ---
Pain Clinic Assessment: 1. History of Osteoarthritis: Left Upper Extremity Right Lower Extremity BACK History of Rheumatoid Arthritis: Not Applicable 2. Height: 5 ft. 9 in. 175.3 cm. Weight: 212.0 lb. oz. 96.163 kg. Patient's BMI: 31.3 3. Vital Signs: BP: 147/103 Pulse: 79 Resp: 14 Temp: 02 Sat: 97 ECG Mon: 4. Pain Intensity: 7 5. Fall Risk: Dizziness: N Needs help standing or walking: N Fallen in the last 3 months: N Fall risk comments: NO CONCERNS NOTED 6. Patient on Blood Thinner: None 7. History of Hypertension: Y 8. Opioid Therapy greater than 6 weeks: Y Opiate Contract Signed: 01/18/18 9. Risk Assessment Tool Provided: low-0 10. Functional Assessment Tool: 11. Recreational Drug Use: Never Drug Type: Tobacco Use: Never Smoker Tobacco Type: Amount or Packs/day: How Many Years: Alcohol Use: No Frequency: Quant:
--- NOTE | 2021-08-04 13:57 | HPC ---
[facility] [address] [address] PAIN MANAGEMENT CONSULTATION Name: MEGHANA MORSE JR Room #: REG [facility].#: [id number] Admission: 08/03/21 Attend Phys: Susan Gonzalez Discharge: Date of : 67 Report #: [id number] THIS REPORT FOR: cc: Magui Benavides Christine L. DO Hocker, Amanda CNS ~ cc: Magui Benavides DO, N Wayne Brown, MD DATE OF SERVICE: 08/03/2021 CHIEF COMPLAINT: Low back pain, bilateral knee pain and foot pain. HISTORY OF PRESENT ILLNESS: This is a very pleasant 56-year-old gentleman who returns to the pain clinic today for renewal of his medications. Today, the patient is reporting that he is having increasing foot pain. Evidently, this has been going on for several months that he finally went to his primary care physician and was found to have some type of fungal infection in his feet. He is currently on antifungal medication as well as a cream that he is taking daily. He believes this has been beneficial in helping relieve some of his foot pain. The patient also continues to have ongoing low back pain that we treat him for and bilateral knee pain. Pain is a 7/10 today describing it as an achy sensation that is worse, especially after working, lifting and standing all day. He believes changing his position as well as stretching, which he is required to do every day at work as well as taking his medications are beneficial. He denies any daytime somnolence or constipation issues that is not relieved by oxjr-[id number] medications with taking this medication regimen. ALLERGIES: No known drug allergies. CURRENT LIST OF MEDICATIONS: Flexeril 10 mg at bedtime, hydrocodone 5/325, omeprazole, meloxicam, Cialis, Zocor, multivitamin, hydrochlorothiazide, amlodipine, Mervat. PQRS: 1. He has known arthritic issues in his knees and upper extremities as well as his back. Denies any rheumatoid arthritis. Height is 5 feet 9 inches, weight is 212, BMI is 31. 2. Vital signs: Blood pressure 147/103, pulse is 79, respirations 14, oxygen sat is 97%. 3. Pain score is 7/10. 4. Denies dizziness, does not need help walking and standing. Has not fallen in the last 3 months. 5. The patient is not on any blood thinners, but does have a history of hypertension. Opioid therapy is greater than 6 weeks; therefore, an opioid signed [place] [address] PAIN MANAGEMENT CONSULTATION Name: MEGHANA MORSE Room #: REG [facility] Christian.#: [id number] Admission: 08/03/21 Attend Phys: Susan Gonzalez Discharge: Date of : 67 Report #: [id number] 6. Risk assessment is low. Functional assessment is . 7. Recreational drug use, he denies. He is not a smoker and does not drink alcohol. According to the prescription monitoring system, he is due to fill his medications. His morphine milliequivalent is 20 MME according to the CDC guidelines. There is a urine drug screen that is on the chart that is appropriate as well. We will collect another one early next year. PHYSICAL EXAMINATION: GENERAL: This is alert and orientated, very pleasant, well-developed, well-nourished 56-year-old gentleman who appears his stated age, rating his pain score at 7/10. HEENT: Normocephalic, atraumatic. Extraocular eye muscles are intact. He is wearing a mask for COVID precautions. NECK: Without adenopathy or JVD. MUSCULOSKELETAL: He is without significant kyphosis, or lordosis. He does have scoliosis of the thoracic area and tenderness that radiates from the thoracic spine into the lumbar spine. Tenderness in his osteoarthritic knees as well as no edema noted. Pain in bilateral feet. The patient has a slightly antalgic gait. Upper extremity and lower extremity strength are symmetrical at 5/5 with good sensation. IMPRESSION: 1. Chronic pain with multiple pain generators. 2. History of scoliosis with spasticity in the thoracic region. 3. Osteoarthritis affecting multiple joints. 4. Foot pain due to fungal infection. 5. Chronic opioid medication management under written agreement. We reviewed the fact that opiate medications are being used to provide analgesia adequate to support activities of daily living, not attempting to achieve a specific pain score on the 0-10 Visual Analog Scale. The current opiate medications are providing sufficient analgesia to allow the patient to participate in activities of daily living. The patient is not exhibiting any aberrant behavior suggestive of drug diversion. The patient is not having any adverse reactions to medications. The patient is not suffering from daytime somnolence or mental acuity changes. The patient is managing opiate-induced constipation with appropriate brfm-uoz-kgukcbn agents and dietary considerations. The patient was counseled on concern for caution with operating a motor vehicle while using opiate medications. A physical exam was performed and the patient's functional status was evaluated. All patients with back pain were advised against the bed rest greater than 4 days and were advised to return to normal activities. Pain score assessment was noted and the treatment plan was reviewed with the patient. All current [address] [address] PAIN MANAGEMENT CONSULTATION Name: MEGHANA MORSE JR Room #: REG [facility]#: [id number] Admission: 08/03/21 Attend Phys: Susan MARIO Lisa Discharge: Date of : 67 Report #: [id number] medications, both prescribed and OTC were reviewed and reconciled on the electronic medical record. Tobacco screening was accomplished and smoking cessation was advised when indicated. BMI was noted and diet/exercise modification was recommended for all patients following outside normal parameters. I reviewed with the patient today their responsibilities to safeguard prescription medications, reviewed their responsibility to utilize medications only as prescribed by the physician. They are to seek and receive pain medications only from 1 physician group ( [facility]). They are to use 1 pharmacy and keep the clinic informed if they change pharmacies. Their responsibilities include making followup visits in a timely fashion and to avoid abrupt discontinuation of medication usage. Their responsibilities further include bringing their medications (bottles from the pharmacy with residual pills) to the visit for possible confirmation of pill counts and the patient understands it is their responsibility to submit to random drug screens to ensure both that the medications prescribed are present, and that no other controlled substances are present. All prescriptions provided today were generated electronically. PLAN: 1. We discussed treatment options with the patient today. We did briefly talk about his feet that his primary care physician is giving him antifungal medicine. I did stress the importance of changing his socks every day and keeping them as dry as possible, which does aid to possible infections. The patient reports he had not been changing his socks daily and that he has found that has been beneficial already by being better about changing them. 2. We will continue him on his hydrocodone 5/325, #120. This will be sent for two scripts by Dr. Dawson. 3. I will continue him on his Flexeril 10 mg tablets, #90 with 1 additional refill sent. The patient takes this only at bedtime. 4. We will collect a random drug screen at his next visit. 5. Time spent with the patient in consultation, reviewing pertinent imaging and recent studies and clinical notes and consultation reports, physical examination and correlation of findings to determine possible pain generators and proposed treatment options 15 minutes. Time spent preparing for appointment, reviewing prescription monitoring system reports, reviewing previous records and proposed treatment options and current medications 5 minutes. Time spent preparing and sending electronic prescriptions and collaborating with Dr. Dawson, and documentation of visit, 5 minutes. Total time spent 25 minutes. <ELECTRONICALLY SIGNED> By: Susan Gonzalez 08/04/21 1357 [id number] Susan Gonzalez /ruth
== END ==
LOC: PAIN 06:53
PROVIDERS: ATTEND Clinical Nurse Specialist Adult Health
DX: G89.29 Other chronic pain (principal); M25.562 Pain in left knee; M54.50 Low back pain, unspecified; M25.561 Pain in right knee; M79.673 Pain in unspecified foot; M41.84 Other forms of scoliosis, thoracic region; M19.90 Unspecified osteoarthritis, unspecified site; Z79.899 Other long term (current) drug therapy

== ENCOUNTER → 2021-09-30 | Outpatient (CLI) | payer BC, OTHER ==
[~2021-09-30] VITALS: Ht 175.3 cm; Wt 96.0 kg
[2021-09-30 08:04] VITALS: BP 141/97
== END ==
LOC: PAIN 09-07 13:16
PROVIDERS: ATTEND Clinical Nurse Specialist Adult Health
DX: G89.29 Other chronic pain (principal); M13.89 Other specified arthritis, multiple sites; M47.814 Spondylosis without myelopathy or radiculopathy, thoracic region; M79.672 Pain in left foot; M79.671 Pain in right foot; M25.561 Pain in right knee; M25.562 Pain in left knee; Z79.899 Other long term (current) drug therapy